=== PATIENT | male | born 1940 | race Caucasian/White ===

== ENCOUNTER 2017-07-21 00:20 | Observation (INO) | payer MEDICARE, OTHER ==
--- NOTE | 2017-07-21 00:56 | ED ---
Chest Pain HPI - General Chief Complaint: Chest Pain Stated Complaint: afib Time Seen by Provider: 07/21/17 00:47 Source: EMS Mode of arrival: EMS Limitations: altered mental status - History of Present Illness Initial Comments: This patient is 77-year-old man brought by to be evaluated for suspected seizure. The patient is not able to give any history, stating he does not recall the episode. The last and that he recalls is going to bed, and feeling like he was in his usual state of health. The patient's relates that she was lying in bed and heard him make a funny moaning or vocalizing sound, and then he started shaking. She states that the shaking lasted may be for minute. She called EMS, and he was brought here to be evaluated. The patient does remember being brought in by the ambulance. The patient's does describe what sounds like a postictal period where he could not properly respond to questions for probably 5-10 minutes. The patient did mention having some chest pain following seizure but he is declining that when I see him. MD Complaint: other Onset/Timin -: hour(s) Onset: during rest Improves With: nothing Worsens With: nothing Treatments Prior to Arrival: none - Related Data Home Medications Medication Instructions Recorded Confirmed Atorvastatin Calcium [Lipitor] 40 mg PO HS 04/11/17 07/21/17 Hydrochlorothiazide 25 mg PO DAILY 04/11/17 07/21/17 Potassium Chloride ER [K-Dur 20] 40 meq PO DAILY 04/11/17 07/21/17 amLODIPine BESYLATE [Norvasc] 10 mg PO DAILY 04/11/17 07/21/17 Metoprolol Succinate (ER) [Toprol 25 mg PO DAILY 07/21/17 07/21/17 Xl] Previous Rx's Medication Instructions Recorded Apixaban [Eliquis] 5 mg PO BID #60 tab 04/13/17 Aspirin 81 mg PO DAILY chew 04/13/17 Allergies Allergy/AdvReac Type Severity Reaction Status Date / Time No Known Allergies Allergy Verified 07/21/17 08:59 Review of Systems ROS Statement: Those systems with pertinent positive or pertinent negative responses have been documented in the HPI. ROS Other: All systems not noted in ROS Statement are negative. Constitutional: Denies: fever, chills, weakness Eyes: Denies: vision change Respiratory: Denies: cough, dyspnea Cardiovascular: Reports: as per HPI, chest pain. Denies: orthopnea, edema Gastrointestinal: Denies: abdominal pain, vomiting, diarrhea Genitourinary: Denies: dysuria, hematuria Musculoskeletal: Denies: back pain Skin: Denies: rash Neurological: Denies: headache, weakness, numbness EKG Findings - EKG Results: EKG: interpreted by ERMD, normal ST/T EKG shows: atrial fibrillation (Rate approximately 84 bpm) - Blocks, [place], Hypertrophy, ST Abn: AV and intraventricular conduction: left anterior fascicular block Past Medical History Past Medical History: No Reported History, COPD, Hyperlipidemia, Hypertension, Seizure Disorder Additional Past Medical History / Comment(s): dehydration, atrial fibrillation History of Any Multi-Drug Resistant Organisms: None Reported Past Surgical History: Heart Catheterization, Hernia Repair Additional Past Surgical History / Comment(s): cateracts Past Psychological History: No Psychological Hx Reported Smoking Status: Former smoker Past Alcohol Use History: None Reported Past Drug Use History: None Reported - Past Family History Father Additional Family Medical History / Comment(s): smoker, and had heart attack Mother Family Medical History: No Reported History General Exam Limitations: altered mental status General appearance: alert, in no apparent distress Head exam: Present: atraumatic, normocephalic Eye exam: Present: normal appearance, PERRL, EOMI. Absent: scleral icterus, conjunctival injection ENT exam: Present: normal oropharynx Neck exam: Present: normal inspection, full ROM Respiratory exam: Present: normal lung sounds bilaterally. Absent: respiratory distress, wheezes, rales, rhonchi, stridor Cardiovascular Exam: Present: regular rate, normal rhythm, normal heart sounds. Absent: systolic murmur, diastolic murmur, rubs, gallop GI/Abdominal exam: Present: soft. Absent: distended, tenderness, guarding, rebound, rigid Extremities exam: Present: normal inspection, normal capillary refill. Absent: pedal edema, calf tenderness Back exam: Present: normal inspection. Absent: CVA tenderness (R), CVA tenderness (L) Neurological exam: Present: alert, oriented X3, CN II-XII intact. Absent: motor sensory deficit Skin exam: Present: warm, dry, intact, normal color. Absent: rash Course Vital Signs 07/21/17 07/21/17 07/21/17 00:27 03:02 03:21 Temperature 99.1 F 97.8 F Pulse Rate 93 78 Pulse Rate [ 72 Left Pulse Oximetery] Pulse Rate [ 72 Right Pulse Oximetery] Respiratory 20 18 18 Rate Blood Pressure 133/67 139/76 Blood Pressure 143/79 [Left Arm] O2 Sat by Pulse 95 97 97 Oximetry Chest Pain MDM - MDM Patient 77-year-old man with what sounds like a generalized tonic-clonic seizure. His neurologic exam is normal here he is back at his baseline. They do give a history that he had one of these episodes a number of months ago, and he had a workup which was unremarkable and the patient is not taking any anti- convulsants. Case discussed with admitting physician and will be admitted to have neurology consultation, and probably EEG as well. Disposition Clinical Impression: Seizure Disposition: ADMITTED IP TO THIS [facility] Condition: Good
[2017-07-21 01:18] LABS: Basophils # (A) 0.1 k/uL (0-0.2); Basophils % (A) 1 %; Eosinophils # (A) 0.5 k/uL (0-0.7); Eosinophils % (A) 4 %; HCT 46.6 % (39.0-53.0); HGB 16.8 gm/dL (13.0-17.5); Lymphocytes # (A) 3.2 k/uL (1.0-4.8); Lymphocytes % (A) 26 %; MCH 31.3 pg (25.0-35.0); Mean Platelet Volume 7.4; Monocytes # (A) 0.7 k/uL (0-1.0); Monocytes % (A) 6 %; Neutrophils # (A) 7.3 k/uL (1.3-7.7); Neutrophils % (A) 60 %; Platelet Count 257 k/uL (150-450); RBC 5.36 m/uL (4.30-5.90); RDW 13.1 % (11.5-15.5); WBC 12.1 k/uL (3.8-10.6)
[2017-07-21 01:27] LABS: ALT 31 U/L (21-72); AST 28 U/L (17-59); Albumin 4.2 g/dL (3.5-5.0); Alcohol <10 mg/dL; Alkaline Phosphatase 103 U/L (38-126); Anion Gap 14 mmol/L; Blood Urea Nitrogen 17 mg/dL (9-20); Calcium 9.6 mg/dL (8.4-10.2); Carbon Dioxide 23 mmol/L (22-30); Chloride 102 mmol/L (98-107); Glucose 163 mg/dL (74-99); Magnesium 2.1 mg/dL (1.6-2.3); Potassium 3.4 mmol/L (3.5-5.1); Sodium 139 mmol/L (137-145); Total Protein 7.2 g/dL (6.3-8.2)
--- NOTE | 2017-07-21 01:30 | CT ---
EXAMINATION TYPE: CT brain wo con DATE OF EXAM: 07/21/2017 COMPARISON: 04/11/2017 HISTORY: seizure CT DLP: 1144.70 mGycm Automated exposure control for dose reduction was used. FINDINGS: There is some cerebral cortical atrophy. There is mild hypodensity in the periventricular white matte r. There is no mass effect nor midline shift. There is no sign of intracranial hemorrhage. The calvar ium appears intact. IMPRESSION: THERE IS MILD ATROPHY AND CHRONIC SMALL VESSEL ISCHEMIA. NO ACUTE INTRACRANIAL ABNORMALITY. NO SIGNIF ICANT CHANGE. MILD ETHMOID SINUSITIS NOTED.
[2017-07-21 02:15] LABS: Appearance,Urine Clear (Clear); Bacteria,Urine Rare /hpf; Bilirubin,Urine Negative (Negative); Blood,Urine Negative (Negative); Color,Urine Yellow; Glucose,Urine (UA) Negative (Negative); Hyaline Casts,Urine 8 /lpf (0-2); Ketones,Urine Negative (Negative); Leukocyte Esterase,Urine Moderate (Negative); Mucus,Urine Rare /hpf; Nitrite,Urine Negative (Negative); Protein,Urine 1+ (Negative); RBC,Urine 1 /hpf (0-5); Squamous Epithelial Cell,Urine 2 /hpf (0-4); Urobilinogen,Urine <2.0 mg/dL (<2.0); WBC,Urine 9 /hpf (0-5)
[2017-07-21] MEDS ORDERED: ACETAMINOPHEN TAB 325 MG TAB PO PRN (02:24)
[2017-07-21] MEDS ORDERED: MAG HYDROX/AL HYDROX/SIMETH 30 ML CUP PO PRN (02:24)
[2017-07-21] MEDS ORDERED: NALOXONE 0.4 MG/ML 1 ML VIAL IV PRN (02:24)
[2017-07-21] MEDS ORDERED: LORazepam 2 MG/ML INJ IV PRN (02:29)
[2017-07-21] MEDS: SODIUM CHLORIDE 0.9% 1,000 ML IV SCH ×2 (03:25→17:03)
[2017-07-21 03:53] VITALS: BMI 25.2
[2017-07-21] MEDS: ASPIRIN 81 MG PO SCH (09:39)
[2017-07-21] MEDS: amLODIPine 10 MG TAB PO SCH (09:39)
[2017-07-21] MEDS: ATENOLOL 25 MG TAB PO SCH ×2 (09:39→20:53)
[2017-07-21] MEDS: APIXABAN 5 MG TAB PO SCH ×2 (09:39→20:54)
[2017-07-21] MEDS: HYDROCHLOROTHIAZIDE 25 MG TAB PO SCH (09:40)
[2017-07-21] MEDS: FAMOTIDINE 20 MG TAB PO SCH ×2 (09:40→20:54)
[2017-07-21] MEDS: POTASSIUM CHLORIDE ER 20 MEQ TAB.ER PO SCH (09:40)
--- NOTE | 2017-07-21 17:13 | EEG ---
ELECTROENCEPHALOGRAM REPORT DATE OF EE07/21/2017. REFERRING PHYSICIAN: Dr. Houston. CONSULTING AND INTERPRETING PHYSICIAN: Andrew Couch MD ELECTROENCEPHALOGRAPHIC EXAMINATION REPORT: INDICATION FOR EXAMINATION: This patient is a 77-year-old male being evaluated for altered mental status. The patient has history of seizure disorder in the past. AGE: [age]. EEG FINDINGS: A routine 21 channel awake digital EEG recording was accomplished utilizing the 10-20 international system with bipolar and referential montages. The background activity in the most alert resting state consists of a low to medium amplitude, poorly developed and poorly sustained 6 Hz activity over the posterior head regions. This posterior rhythm attenuates to eye opening. There is a small amount of low amplitude 18-20 Hz beta activity seen maximally over the anterior head regions. Muscle and movement artifact was observed on a few occasions during the tracing. Hyperventilation was not performed. Photic stimulation at flash frequencies of 2-30 Hz produced a minimal occipital driving response. No epileptiform discharges were seen. IMPRESSION: This EEG is moderately abnormal in a diffuse fashion due to slowing of the EEG background. The EEG failed to reveal any focal, lateralized, or epileptiform abnormalities. Clinical correlation is recommended. MMODL / IJN: [id number] /
--- NOTE | 2017-07-21 18:23 | P.CNNES ---
History of Present Illness Consult date: 07/21/17 Reason for Consult: This patient is admitted for possible seizure. History of Present Illness: This patient is a 77-year-old right-handed white male who states he was in his usual state of health until late yesterday evening. He was at home and was in bed and stated that he suddenly developed twitching of his right arm. He was alert during this entire episode which may have lasted about a minute in duration. His was alerted to this sudden change and immediately called EMS. He was transported by EMS to the emergency room for further evaluation. He appeared to be slightly confused in the ER and he was admitted for further evaluation. He was sent for a computed tomography scan of the brain by ER physician Dr. Melton. CAT scan of the brain revealed mild atrophy and chronic small vessel ischemia. No acute intracranial abnormality was noted. There was mild ethmoid sinusitis noted. The patient's EKG revealed evidence of new onset atrial fibrillation. Would recommend further follow-up with cardiology. The patient was admitted to the hospital for further evaluation. The patient has no previous history of head injury or seizures. He does seem to be appropriate for his age today on examination. He was able to complete a routine EEG today. This EEG was reviewed and is moderately slow with no epileptiform discharges. We discussed the results of the CAT scan and EEG today with the patient. He does seem to be appropriate and is able to follow all simple commands. He denies any headache pain or weakness on exam at this time. At this time given his EEG findings he is not a candidate for anticonvulsant therapy. We will continue to follow his progress closely during this admission. Neurology is now been consulted for further evaluation and recommendations. Review of Systems Constitutional: Denies chills, Denies fever Eyes: denies blurred vision, denies pain Ears, nose, mouth and throat: Denies headache, Denies sore throat Cardiovascular: Denies chest pain, Denies shortness of breath Respiratory: Denies cough Gastrointestinal: Denies abdominal pain, Denies diarrhea, Denies nausea, Denies vomiting Musculoskeletal: Denies myalgias Integumentary: Denies pruritus, Denies rash Neurological: Reports change in mentation, Reports convulsions, Denies numbness , Denies weakness Psychiatric: Denies anxiety, Denies depression Endocrine: Denies fatigue, Denies weight change Past Medical History Past Medical History: COPD, Hyperlipidemia, Hypertension, Seizure Disorder Additional Past Medical History / Comment(s): dehydration, atrial fibrillation History of Any Multi-Drug Resistant Organisms: None Reported Past Surgical History: Heart Catheterization, Hernia Repair Additional Past Surgical History / Comment(s): cateracts Past Psychological History: No Psychological Hx Reported Smoking Status: Former smoker Past Alcohol Use History: None Reported Past Drug Use History: None Reported Additional Drug Use History / Comment(s): only smoked for a couple years in his 20's - Past Family History Father Additional Family Medical History / Comment(s): smoker, and had heart attack Mother Family Medical History: No Reported History Medications and Allergies Home Medications Medication Instructions Recorded Confirmed Type Atorvastatin Calcium [Lipitor] 40 mg PO HS 04/11/17 07/21/17 History Hydrochlorothiazide 25 mg PO DAILY 04/11/17 07/21/17 History Potassium Chloride ER [K-Dur 20] 40 meq PO DAILY 04/11/17 07/21/17 History amLODIPine BESYLATE [Norvasc] 10 mg PO DAILY 04/11/17 07/21/17 History Apixaban [Eliquis] 5 mg PO BID #60 tab 04/13/17 07/21/17 Rx Aspirin 81 mg PO DAILY chew 04/13/17 07/21/17 Rx Metoprolol Succinate (ER) [Toprol 25 mg PO DAILY 07/21/17 07/21/17 History Xl] Allergies Allergy/AdvReac Type Severity Reaction Status Date / Time No Known Allergies Allergy Verified 07/21/17 08:59 Physical Examination - Vital Signs Vital Signs: Vital Signs Temp Pulse Pulse Pulse Resp BP BP 07/21/17 15:00 97.8 F 65 16 113/67 07/21/17 07:00 97.5 F L 82 16 154/73 07/21/17 03:21 78 18 139/76 07/21/17 03:02 97.8 F 72 72 18 143/79 07/21/17 00:27 99.1 F 93 20 133/67 Pulse Ox 07/21/17 15:00 96 07/21/17 07:00 98 07/21/17 03:21 97 07/21/17 03:02 97 07/21/17 00:27 95 Intake and Output 07/21/17 07/21/17 07/21/17 06:59 14:59 22:59 Intake Total 275 240 Balance 275 240 Intake: Intake, IV Titration 275 Amount Sodium Chloride 0.9% 1, 275 000 ml @ 75 mls/hr IV . [id number] [facility] Rx#:[id number] Oral 240 Other: Voiding Method Toilet # Voids 1 2 Weight 77.56 kg - Constitutional General appearance: average body habitus, cooperative - EENT EENT: PERRL, mucous membranes moist - Respiratory Respiratory: lungs clear, normal breath sounds - Cardiovascular Cardiovascular: regular rate, normal S1, normal S2 Extremities: no peripheral edema bilaterally - Gastrointestinal Gastrointestinal: normoactive bowel sounds - Integumentary Integumentary: normal - Neurologic Cranial nerve examination: PERRL, EOMI, VFF, V1/V2/V3 grossly intact, face symmetric, tongue midline, intact gag reflex, intact corneal reflex, normal palatal elevation Speech examination: intact Sensorimotor examination: intact Motor examination - right side: 4/5: biceps, triceps, wrist flexion, wrist extension, registry nurse, hip flexors, knee extensors, dorsiflexion, toe extension (EHL) , plantarflexion Motor examination - left side: 4/5: biceps, triceps, wrist flexion, wrist extension, registry nurse, hip flexors, knee extensors, dorsiflexion, toe extension (EHL) , plantarflexion Detailed sensory examination: intact Reflex and gait examination: intact Reflexes: 1+: ankle, bicep, knee, tricep - Musculoskeletal Musculoskeletal: no pain - Psychiatric Psychiatric: mood/affect appropriate, cooperative Results - Laboratory Findings CBC and BMP: 07/21/17 00:30 07/21/17 00:30 Abnormal Lab Findings: Abnormal Labs 07/21/17 07/21/17 07/21/17 00:30 00:30 01:50 WBC 12.1 H Potassium 3.4 L Glucose 163 H Urine Protein 1+ H Ur Leukocyte Esterase Moderate H Urine WBC 9 H Urine WBC Clumps Rare H Urine Bacteria Rare H Hyaline Casts 8 H Urine Mucus Rare H Assessment and Plan (1) Acute encephalopathy Current Visit: Yes Status: Acute Code(s): G93.40 - ENCEPHALOPATHY, UNSPECIFIED SNOMED Code(s): 52305782 (2) Hypertension Current Visit: Yes Status: Acute Code(s): I10 - ESSENTIAL (PRIMARY) HYPERTENSION SNOMED Code(s): 72700414 (3) Seizure Current Visit: Yes Status: Acute Code(s): R56.9 - UNSPECIFIED CONVULSIONS SNOMED Code(s): 06785461 (4) New onset atrial fibrillation Current Visit: No Status: Acute Code(s): I48.91 - UNSPECIFIED ATRIAL FIBRILLATION SNOMED Code(s): 30680518 Plan: This patient is a 77-year-old male who was admitted to hospital after having sudden onset of twitching involving his right upper extremity. According to the patient he awoke late in the night and was noted to have twitching of his right arm. This lasted for about 1 minute in duration and quickly resolved. He has had no further recurrence of the symptoms. His is concerned and called EMS and he was brought into the emergency room for further evaluation. The patient was seen in the ER by Dr. Melton. He underwent a CAT scan of the brain which failed to reveal any acute findings. He was admitted to hospital for further evaluation. The patient was able to complete a routine EEG today which was reviewed. EEG revealed moderate slowing with no evidence of any epileptiform discharges. We did discuss all of his test results today with the patient in detail. We will continue to monitor the patient for any further recurrence of symptoms. We will continue close neurological follow-up with the patient during this admission. His overall prognosis at this time remains guarded. Time with Patient: Greater than 30
[2017-07-21] MEDS: ATORVASTATIN 40 MG TAB PO SCH (20:54)
--- NOTE | 2017-07-21 23:19 | P.HPIM ---
History of Present Illness H&P Date: 07/21/17 Chief Complaint: Seizures Patient is a 77-year-old male with a known history of hypertension, hyperlipidemia and chronic atrial fibrillation on anticoagulation was brought to the hospital with complaints of seizures. According to his patient developed shaking movements of hands which last about a minute and patient was unresponsive for about few minutes. No bowel or bladder incontinence. As per his patient had similar episode previously. EMS was called and patient was brought to the hospital. Apparently patient was able to walk to the EMS vehicle. CT head revealed chronic small was an ischemic changes and atrophy. No acute changes noted. Mild ethmoid sinusitis EKG showed atrial fibrillation EEG was done and awaiting report at this time Patient denied any chest pain or shortness of breath. No nausea vomiting or abdominal pain. No recent illnesses. No recent flulike symptoms. No history of previous stroke or head injury. Review of Systems Constitutional: Patient denies any fever or chills . No generalized weakness or weight loss. Abdomen: Patient denied nausea vomiting and diarrhea and abdominal pain. Cardiovascular: Patient denies any chest pain or short of breath no palpitations. Respiratory: patient denied any cough is from production. No shortness of breath Neurologic: Patient denied any numbness or tingling headache. Musculoskeletal: Patient denies any complaints of joint swelling or deformity. Skin: Negative Psychiatric: Negative Endocrine: No heat or cold intolerance. No recent weight gain. Genitourinary: No dysuria or hematuria. All other 14 point ROS negative except the above Past Medical History Past Medical History: COPD, Hyperlipidemia, Hypertension, Seizure Disorder Additional Past Medical History / Comment(s): dehydration, atrial fibrillation History of Any Multi-Drug Resistant Organisms: None Reported Past Surgical History: Heart Catheterization, Hernia Repair Additional Past Surgical History / Comment(s): cateracts Past Psychological History: No Psychological Hx Reported Smoking Status: Former smoker Past Alcohol Use History: None Reported Past Drug Use History: None Reported Additional Drug Use History / Comment(s): only smoked for a couple years in his 20's - Past Family History Father Additional Family Medical History / Comment(s): smoker, and had heart attack Mother Family Medical History: No Reported History Medications and Allergies Home Medications Medication Instructions Recorded Confirmed Type Atorvastatin Calcium [Lipitor] 40 mg PO HS 04/11/17 07/21/17 History Hydrochlorothiazide 25 mg PO DAILY 04/11/17 07/21/17 History Potassium Chloride ER [K-Dur 20] 40 meq PO DAILY 04/11/17 07/21/17 History amLODIPine BESYLATE [Norvasc] 10 mg PO DAILY 04/11/17 07/21/17 History Apixaban [Eliquis] 5 mg PO BID #60 tab 04/13/17 07/21/17 Rx Aspirin 81 mg PO DAILY chew 04/13/17 07/21/17 Rx Metoprolol Succinate (ER) [Toprol 25 mg PO DAILY 07/21/17 07/21/17 History Xl] Allergies Allergy/AdvReac Type Severity Reaction Status Date / Time No Known Allergies Allergy Verified 07/21/17 08:59 Physical Exam Vitals: Vital Signs Temp Pulse Pulse Pulse Resp BP BP 07/21/17 07:00 97.5 F L 82 16 154/73 07/21/17 03:21 78 18 139/76 07/21/17 03:02 97.8 F 72 72 18 143/79 07/21/17 00:27 99.1 F 93 20 133/67 Pulse Ox 07/21/17 07:00 98 07/21/17 03:21 97 07/21/17 03:02 97 07/21/17 00:27 95 Intake and Output 07/20/17 07/21/17 07/21/17 22:59 06:59 14:59 Intake Total 275 240 Balance 275 240 Intake: Intake, IV Titration 275 Amount Sodium Chloride 0.9% 1, 275 000 ml @ 75 mls/hr IV . [id number] [facility] Rx#:[id number] Oral 240 Other: Voiding Method Toilet # Voids 1 Weight 77.56 kg PHYSICAL EXAMINATION: Patient is lying in the bed comfortably, no acute distress, awake alert and oriented.. HEENT: Normocephalic. Neck is supple. Pupils reactive. Nostrils clear. Oral cavity is moist. Ears reveal no drainage. Neck reveals no JVD, carotid bruits, or thyromegaly. CHEST EXAMINATION: Trachea is central. Symmetrical expansion. Lung nelson clear to auscultation and percussion. CARDIAC: Normal S1, S2 with no gallops. No murmurs ABDOMEN: Soft. Bowel sounds normal. No organomegaly. No abdominal bruits. Extremities: reveal no edema. No clubbing or cyanosis Neurologically awake, alert, oriented x3 with well-coordinated movements. No focal deficits noted Skin: No rash or skin lesions. Psychiatric: Coperative. Nonsuicidal Musculoskeletal: No joint swelling or deformity. Normal range of motion. Results CBC & Chem 7: 07/21/17 00:30 07/21/17 00:30 Labs: Abnormal Lab Results - Last 24 Hours (Table) 07/21/17 07/21/17 07/21/17 Range/Units 00:30 00:30 01:50 WBC 12.1 H (3.8-10.6) k/uL Potassium 3.4 L (3.5-5.1) mmol/L Glucose 163 H (74-99) mg/dL Urine Protein 1+ H (Negative) Ur Leukocyte Esterase Moderate H (Negative) Urine WBC 9 H (0-5) /hpf Urine WBC Clumps Rare H (None) /hpf Urine Bacteria Rare H (None) /hpf Hyaline Casts 8 H (0-2) /lpf Urine Mucus Rare H (None) /hpf Thrombosis Risk Factor Assmnt - Choose All That Apply Any of the Below Risk Factors Present?: No Other Risk Factors: Yes Each Risk Factor Represents 2 Points: Age 61-74 years Other congenital or acquired thrombophilia - If yes, enter type in comment: No Thrombosis Risk Factor Assessment Total Risk Factor Score: 2 Thrombosis Risk Factor Assessment Level: Low Risk Assessment and Plan Assessment: Bilateral shaky movements of hands. Rule out seizures Chronic atrial fibrillation on anticoagulation Hypertension Hyperlipidemia COPD stable Plan: Patient will be continued to monitor for any seizure activity . EEG was done. Neurology has been consulted. Further recommendations based on the clinical course. Continue with home medications. Time with Patient: Greater than 30
[2017-07-22] MEDS: SODIUM CHLORIDE 0.9% 1,000 ML IV SCH ×2 (05:06→18:55)
[2017-07-22 07:25] LABS: Basophils # (A) 0.1 k/uL (0-0.2); Basophils % (A) 1 %; Eosinophils # (A) 0.4 k/uL (0-0.7); Eosinophils % (A) 4 %; HCT 43.1 % (39.0-53.0); HGB 14.8 gm/dL (13.0-17.5); Lymphocytes # (A) 2.6 k/uL (1.0-4.8); Lymphocytes % (A) 25 %; MCH 30.5 pg (25.0-35.0); MCHC 34.2 g/dL (31.0-37.0); Mean Platelet Volume 6.7; Monocytes # (A) 0.7 k/uL (0-1.0); Monocytes % (A) 7 %; Neutrophils # (A) 6.3 k/uL (1.3-7.7); Neutrophils % (A) 61 %; Platelet Count 240 k/uL (150-450); RBC 4.84 m/uL (4.30-5.90); RDW 13.4 % (11.5-15.5); WBC 10.3 k/uL (3.8-10.6)
[2017-07-22 07:31] LABS: Anion Gap 10 mmol/L; Blood Urea Nitrogen 14 mg/dL (9-20); Carbon Dioxide 28 mmol/L (22-30); Chloride 106 mmol/L (98-107); Glucose 105 mg/dL (74-99); Potassium 3.7 mmol/L (3.5-5.1); Sodium 144 mmol/L (137-145)
[2017-07-22] MEDS: FAMOTIDINE 20 MG TAB PO SCH ×2 (08:13→22:22)
[2017-07-22] MEDS: amLODIPine 10 MG TAB PO SCH (08:13)
[2017-07-22] MEDS: POTASSIUM CHLORIDE ER 20 MEQ TAB.ER PO SCH (08:14)
[2017-07-22] MEDS: ATENOLOL 25 MG TAB PO SCH ×2 (08:14→22:22)
[2017-07-22] MEDS: HYDROCHLOROTHIAZIDE 25 MG TAB PO SCH (08:14)
[2017-07-22] MEDS: ASPIRIN 81 MG PO SCH (08:14)
[2017-07-22] MEDS: APIXABAN 5 MG TAB PO SCH ×2 (08:14→22:22)
[2017-07-22] MEDS: ATORVASTATIN 40 MG TAB PO SCH (22:22)
--- NOTE | 2017-07-22 22:30 | P.PN ---
Subjective Progress Note Date: 07/22/17 This patient is a 77-year-old male who is being evaluated for possible seizure event. Patient was brought into the hospital and underwent a computed tomography scan of the brain which revealed chronic small vessel ischemic changes and atrophy. He underwent a routine EEG which was moderately slow consistent with moderate encephalopathy. Patient was noted today to be having signs of increased confusion in the evening hours. His EEG failed to reveal any evidence of epileptiform discharges. The patient is showing signs of mild sundowner syndrome. As noted his CAT scan of the brain did reveal cortical atrophy and EEG is moderately slow. At this point we will continue close monitoring for the patient. He does not require anticonvulsant therapy at this time. His overall prognosis remains guarded. We will continue close neurological follow-up for the patient during this admission. Objective - Vital Signs Vital signs: Vital Signs Temp 98.4 F 07/22/17 14:15 Pulse 68 07/22/17 14:15 Resp 18 07/22/17 14:15 BP 125/72 07/22/17 14:15 Pulse Ox 97 07/22/17 14:15 Intake & Output 07/22/17 07/22/17 07/23/17 06:59 18:59 06:59 Intake Total 717 Balance 717 Intake: Oral 717 Other: Voiding Method Toilet # Voids 2 2 - Exam Physical examination: PHYSICAL EXAMINATION: Patient is resting comfortably in bed. VITAL SIGNS: Blood pressure is [125/72]. Heart rate is [68]. Respiration is [18] . Temperature is [98.4]. HEENT: Head is atraumatic, neck is supple, there were no carotid bruits. CHEST: Lungs are clear to auscultation and percussion. CARDIAC: S1, S2 normal rate and rhythm. There is no murmur. ABDOMEN: Soft and nontender. Bowel sounds are present. EXTREMITIES: There is no pedal edema. Peripheral pulses are present. Neurological examination: Patient's neurological examination is unchanged from yesterday. - Labs CBC & Chem 7: 07/22/17 07:01 07/22/17 07:01 Labs: Abnormal Lab Results - Last 24 Hours (Table) 07/22/17 Range/Units 07:01 Glucose 105 H (74-99) mg/dL Assessment and Plan (1) Acute encephalopathy Current Visit: Yes Status: Acute Code(s): G93.40 - ENCEPHALOPATHY, UNSPECIFIED SNOMED Code(s): 76095178 (2) Hypertension Current Visit: Yes Status: Acute Code(s): I10 - ESSENTIAL (PRIMARY) HYPERTENSION SNOMED Code(s): 68635972 (3) Seizure Current Visit: Yes Status: Acute Code(s): R56.9 - UNSPECIFIED CONVULSIONS SNOMED Code(s): 30462270 (4) New onset atrial fibrillation Current Visit: No Status: Acute Code(s): I48.91 - UNSPECIFIED ATRIAL FIBRILLATION SNOMED Code(s): 25521534 Plan: This patient is a 77-year-old male being evaluated for possibility of seizure disorder. Patient underwent a computed tomography scan of the brain on admission the results which are noted above. He completed a routine EEG yesterday which revealed moderate slowing with no epileptiform discharges. He is showing signs of mild encephalopathy this evening. We will continue close neurological follow-up for the patient. His overall prognosis at this time remains guarded.
--- NOTE | 2017-07-22 23:38 | PN ---
PROGRESS NOTE DATE OF SERVICE: 07/22/2017 PRESENTING COMPLAINT: Possible seizure. INTERVAL HISTORY: This patient presented with episodes of shaking of the hand and loss of consciousness. According to the at the bedside, this is not the first time he has had this episode. He had it a few weeks ago. The patient's EKG did not show any obvious seizure activity, but on clinical grounds, the patient did seem to have a focal seizure resulting into generalized seizure. Neurology did see the patient with EEG. At this point, it was decided to hold off any antiepileptic drugs. The patient was feeling well when I saw this patient this afternoon. Tolerating his diet. No further episodes. at the bedside. REVIEW OF SYSTEMS: Done for constitutional, cardiovascular, GI, pulmonary and findings as above. CURRENT MEDICATIONS: Reviewed that include Eliquis. PHYSICAL EXAMINATION: Temperature 98.4, pulse 58, respiratory 18, blood pressure 125/72, pulse ox 97% room air. GENERAL: Sitting up in bed, comfortable. EYES: Pupils equal. Conjunctivae are normal. HEENT: External appearance of nose and ears normal. Oral cavity normal. NECK: JVD not raised. Mass not palpable. RESPIRATORY: Effort normal. LUNGS: Fair entry. CARDIOVASCULAR: 1st and 2nd sounds normal. No edema. ABDOMEN: Soft, nontender. Liver and spleen not palpable. PSYCHIATRY: Alert and oriented x3. Mood and affect normal. INVESTIGATIONS: White count 10.3, hemoglobin 14.8, potassium 3.7. ASSESSMENT: 1. Possible seizure activity with more than one episode. 2. Paroxysmal atrial fibrillation for which patient is chronically on Eliquis. 3. Essential hypertension. 4. Hyperlipidemia. PLAN: Care was discussed at length with the patient and . We will see how the patient does today and await any further input from Neurology. Seizure precautions are to remain in place. MMODL / IJN: [id number] /
[2017-07-23] MEDS: SODIUM CHLORIDE 0.9% 1,000 ML IV SCH (08:48)
[2017-07-23] MEDS: FAMOTIDINE 20 MG TAB PO SCH (08:49)
[2017-07-23] MEDS: ASPIRIN 81 MG PO SCH (08:49)
[2017-07-23] MEDS: amLODIPine 10 MG TAB PO SCH (08:49)
[2017-07-23] MEDS: HYDROCHLOROTHIAZIDE 25 MG TAB PO SCH (08:50)
[2017-07-23] MEDS: APIXABAN 5 MG TAB PO SCH (08:50)
[2017-07-23] MEDS: ATENOLOL 25 MG TAB PO SCH (08:50)
[2017-07-23] MEDS: POTASSIUM CHLORIDE ER 20 MEQ TAB.ER PO SCH (08:50)
--- NOTE | 2017-07-23 14:19 | P.PN ---
Subjective Progress Note Date: 07/23/17 This patient is a 77-year-old male who is being evaluated for possible seizure event. Patient was brought into the hospital and underwent a computed tomography scan of the brain which revealed chronic small vessel ischemic changes and atrophy. He underwent a routine EEG which was moderately slow consistent with moderate encephalopathy. Patient was noted today to be having signs of increased confusion in the evening hours. His EEG failed to reveal any evidence of epileptiform discharges. The patient is showing signs of mild sundowner syndrome. As noted his CAT scan of the brain did reveal cortical atrophy and EEG is moderately slow. At this point we will continue close monitoring for the patient. He does not require anticonvulsant therapy at this time. His overall prognosis remains guarded. The patient's was at bedside today and was able to provide more history for this patient. Apparently he has had 3 episodes that have always occurred at night in which he has some shaking of his right arm and becomes somewhat obtunded. His has a hard time awakening him during these events. All 3 events have occurred at night while he is sleeping. Still unclear if this may be related to a sleep disorder. He may benefit from a sleep study. We did review the results of his CAT scan of the brain and EEG results with his in detail. We have recommended that he follow up in the outpatient neurology clinic in 2-3 weeks at which time we may consider repeat EEG. At this time he does not appear to have underlying seizure disorder based on his most recent EEG that was done here in the hospital. Patient's states she will try to get him in for follow-up in the neurology clinic. We will continue close neurological follow- up for the patient during this admission. Objective - Vital Signs Vital signs: Vital Signs Temp 97.9 F 07/23/17 07:00 Pulse 66 07/23/17 07:00 Resp 16 07/23/17 07:00 BP 127/78 07/23/17 07:00 Pulse Ox 96 07/23/17 07:00 Intake & Output 07/22/17 07/23/17 07/23/17 18:59 06:59 18:59 Intake Total 717 480 180 Balance 717 480 180 Weight 77.56 kg Intake: Oral 717 480 180 Other: Voiding Method Toilet Toilet # Voids 2 1 - Exam Physical examination: PHYSICAL EXAMINATION: Patient is resting comfortably in bed. VITAL SIGNS: Blood pressure is [122/78]. Heart rate is [67]. Respiration is [16] . Temperature is [97.8]. HEENT: Head is atraumatic, neck is supple, there were no carotid bruits. CHEST: Lungs are clear to auscultation and percussion. CARDIAC: S1, S2 normal rate and rhythm. There is no murmur. ABDOMEN: Soft and nontender. Bowel sounds are present. EXTREMITIES: There is no pedal edema. Peripheral pulses are present. Neurological examination: Patient's neurological examination is unchanged from yesterday. - Labs CBC & Chem 7: 07/22/17 07:01 07/22/17 07:01 Assessment and Plan (1) Acute encephalopathy Current Visit: Yes Status: Acute Code(s): G93.40 - ENCEPHALOPATHY, UNSPECIFIED SNOMED Code(s): 96489409 (2) Hypertension Current Visit: Yes Status: Acute Code(s): I10 - ESSENTIAL (PRIMARY) HYPERTENSION SNOMED Code(s): 32506297 (3) Seizure Current Visit: Yes Status: Acute Code(s): R56.9 - UNSPECIFIED CONVULSIONS SNOMED Code(s): 16370490 (4) New onset atrial fibrillation Current Visit: No Status: Acute Code(s): I48.91 - UNSPECIFIED ATRIAL FIBRILLATION SNOMED Code(s): 45920979 Plan: This patient is a 77-year-old male who was initially admitted to Hospital with questionable seizure activity at home. History was obtained today from his who is at bedside. Apparently he has had 3 episodes since March of last year. All 3 episodes are very typical and occur only at night. He usually is noted to have some movement of his right arm and becomes unresponsive and quickly comes out of these spells after a minute or two. He was admitted to the hospital for this admission and underwent a routine EEG which failed to reveal any evidence of active seizure focus. There was diffuse slowing. CAT scan of the brain also revealed cortical atrophy. Clinical history suggests possibility of a sleep disorder. We have reviewed the EEG results and CAT scan results today with the patient and his at bedside. At this time we will hold off on any specific anticonvulsant medication and will plan to reevaluate the patient soon after discharge in 2-3 weeks. Patient is advised he should not be driving.. To 6 months due to his recent episodes. We will continue close neurological follow-up for the patient during this admission. Case was discussed today with Dr. Mast who is planning to discharge the patient later today to home. His overall prognosis at this time remains guarded.
[2017-07-23 15:41] VITALS: BP 119/72; PULSE 64; RESP 21; TEMP 97.5
--- NOTE | 2017-07-24 18:40 | DS ---
DISCHARGE SUMMARY DATE OF ADMISSION: July 21, 2017. DATE OF DISCHARGE: July 23, 2017. FINAL DIAGNOSES: 1. Possible metabolic encephalopathy per Neurology. 2. Paroxysmal atrial fibrillation for which patient is chronically on Eliquis. 3. Essential hypertension. 4. Hyperlipidemia. HOSPITAL COURSE: This patient presents with shaking of the right arm. Has some loss of consciousness. The patient had this episode before. The patient did have an EEG that did not show any seizure activity. The patient is seen by Dr. Couch with who I discussed. He thought this patient probably has had encephalopathy. At this point, no antiseizure medications to be given. I did discuss this with the . On exam, lungs are clear. Cardiovascular 1st and 2nd sounds normal. CT scan of the brain shows some atrophic changes. DISCHARGE MEDICATIONS: 1. Lipitor 40 mg q.h.s. 2. Hydrochlorothiazide 25 mg a day. 3. Potassium 40 mEq a day. 4. Norvasc 10 mg a day. 5. Eliquis 5 mg b.i.d. 6. Aspirin 81 mg a day. 7. Tenormin 25 mg b.i.d. Follow up with Dr. Franklin on July 29, 2017, follow up with Dr. Couch in 2 weeks. The patient advised against driving until further notice. Copy to Dr Franklin. MMJOSELUISL / EZEKIELN: [id number] /
== END 2017-07-23 15:25 | disposition home or self-care (01) ==
LOC: EC 00:20 → INTOOBSV 02:30 → 3SUR 02:30
PROVIDERS: ADMIT Hospitalist; ATTEND Hospitalist
DX: R25.3 Fasciculation (principal); R07.9 Chest pain, unspecified; R41.0 Disorientation, unspecified; I48.0 Paroxysmal atrial fibrillation; I48.2 Chronic atrial fibrillation; E78.5 Hyperlipidemia, unspecified; I10 Essential (primary) hypertension; J44.9 Chronic obstructive pulmonary disease, unspecified; G40.909 Epilepsy, unspecified, not intractable, without status epilepticus; Z87.891 Personal history of nicotine dependence; Z79.899 Other long term (current) drug therapy; Z79.01 Long term (current) use of anticoagulants; Z79.82 Long term (current) use of aspirin; Z82.49 Family history of ischemic heart disease and other diseases of the circulatory system
CPT/HCPCS: 36415; 70450; 80048; 80053; 80320; 81001; 83735; 84484; 85025; 93005; 95819; 96360; 96361; 99285

== ENCOUNTER 2017-08-10 23:28 | Inpatient (IN) | payer MEDICARE, OTHER ==
[2017-08-10] MEDS ORDERED: PHENYTOIN SODIUM INJ 1,000 MG in SODIUM CHLORIDE 0.9% 100 ML IVPB STA (23:42)
--- NOTE | 2017-08-10 23:45 | ED ---
General Adult HPI - General Chief complaint: Seizure Stated complaint: SEIZURE Time Seen by Provider: 08/10/17 23:32 Source: patient, EMS, RN notes reviewed Mode of arrival: EMS Limitations: altered mental status, physical limitation - History of Present Illness Initial comments: Patient is a pleasant 77-year-old male presenting to the emergency department following suspected seizure. provides history. Patient does not recall the episode. Patient normally is oriented to time and year. states shortly after they went to bed patient had generalized seizure activity that lasted around 10 seconds or so. Following this patient was unresponsive for approximately 10 minutes. Following this patient was alert however confused. She states at this time patient is close to normal. Patient has had 3 episodes now over the past several months. Patient denies any injury. - Related Data Home Medications Medication Instructions Recorded Confirmed Atorvastatin Calcium [Lipitor] 40 mg PO HS 04/11/17 08/10/17 Hydrochlorothiazide 25 mg PO DAILY 04/11/17 08/10/17 Potassium Chloride ER [K-Dur 20] 40 meq PO DAILY 04/11/17 08/10/17 amLODIPine BESYLATE [Norvasc] 10 mg PO DAILY 04/11/17 08/10/17 Previous Rx's Medication Instructions Recorded Apixaban [Eliquis] 5 mg PO BID #60 tab 04/13/17 Aspirin 81 mg PO DAILY chew 04/13/17 Atenolol [Tenormin] 25 mg PO BID #60 tab 07/23/17 Allergies Allergy/AdvReac Type Severity Reaction Status Date / Time No Known Allergies Allergy Verified 08/10/17 23:35 Review of Systems ROS Statement: Those systems with pertinent positive or pertinent negative responses have been documented in the HPI. ROS Other: All systems not noted in ROS Statement are negative. Constitutional: Denies: fever Eyes: Denies: eye pain ENT: Denies: ear pain Respiratory: Denies: cough Cardiovascular: Denies: chest pain Endocrine: Denies: fatigue Gastrointestinal: Denies: abdominal pain Genitourinary: Denies: dysuria Musculoskeletal: Denies: back pain Skin: Denies: rash Neurological: Denies: headache, weakness, confusion Past Medical History Past Medical History: No Reported History, Atrial Fibrillation, COPD, Hyperlipidemia, Hypertension, Seizure Disorder, Sleep Apnea/CPAP/BIPAP Additional Past Medical History / Comment(s): dehydration, atrial fibrillation, History of Any Multi-Drug Resistant Organisms: None Reported Past Surgical History: Heart Catheterization, Hernia Repair Additional Past Surgical History / Comment(s): cataracts Past Psychological History: No Psychological Hx Reported Smoking Status: Former smoker Past Alcohol Use History: None Reported Past Drug Use History: None Reported - Past Family History Father Additional Family Medical History / Comment(s): smoker, and had heart attack Mother Family Medical History: No Reported History General Exam Limitations: altered mental status, physical limitation General appearance: alert, in no apparent distress Head exam: Present: atraumatic, normocephalic Eye exam: Present: normal appearance, PERRL, EOMI. Absent: nystagmus ENT exam: Present: normal oropharynx Neck exam: Present: normal inspection. Absent: meningismus Respiratory exam: Present: normal lung sounds bilaterally Cardiovascular Exam: Present: regular rate, irregular rhythm GI/Abdominal exam: Present: soft. Absent: tenderness Extremities exam: Present: normal inspection Neurological exam: Present: alert, CN II-XII intact. Absent: motor sensory deficit Expanded Neurological exam: Present: protecting the airway Patient oriented to: Present: person, place. Absent: time (Patient unable to recall year or month. states this is abnormal) Cranial nerves: EOM's Intact: Normal, Facial Sensation: Normal Sensory exam: Upper Extremity Light Touch: Normal, Lower Extremity Pin Prick: Normal Motor strength exam: RUE: 5, LUE: 5, RLE: 5, LLE: 5 Eye Response: (4) open spontaneously Motor Response: (6) obeys commands Verbal Response: (4) confused conversation Psychiatric exam: Present: normal affect, normal mood Skin exam: Present: normal color Course Vital Signs 08/10/17 08/11/17 23:31 00:15 Temperature 98.7 F Pulse Rate 83 65 Respiratory 18 18 Rate Blood Pressure 111/69 131/78 O2 Sat by Pulse 94 L 95 Oximetry EKG Findings - EKG Comments: EKG Findings:: A. fib with a rate of 59. QRS 100. QT 416. QTC 411. Left axis. Normal QRS. No acute ST change. Medical Decision Making - Medical Decision Making Patient reevaluated and resting comfortably in bed. Patient and family updated on results and plan. Case discussed with Dr. marquez, who will admit for Dr. franklin. Neurology will be consulted. Patient will be covered with antibiotics for possible urinary tract infection. - Lab Data Result diagrams: 08/10/17 23:50 08/10/17 23:50 Lab Results 08/10/17 08/10/17 08/11/17 Range/Units 23:50 23:50 00:31 WBC 11.3 H (3.8-10.6) k/uL RBC 5.77 (4.30-5.90) m/uL Hgb 17.2 (13.0-17.5) gm/dL Hct 51.0 (39.0-53.0) % MCV 88.3 (80.0-100.0) fL MCH 29.9 (25.0-35.0) pg MCHC 33.8 (31.0-37.0) g/dL RDW 13.5 (11.5-15.5) % Plt Count 295 (150-450) k/uL Neutrophils % 52 % Lymphocytes % 34 % Monocytes % 7 % Eosinophils % 5 % Basophils % 1 % Neutrophils # 5.9 (1.3-7.7) k/uL Lymphocytes # 3.8 (1.0-4.8) k/uL Monocytes # 0.7 (0-1.0) k/uL Eosinophils # 0.5 (0-0.7) k/uL Basophils # 0.1 (0-0.2) k/uL Sodium 143 (137-145) mmol/L Potassium 3.4 L (3.5-5.1) mmol/L Chloride 103 (98-107) mmol/L Carbon Dioxide 17 L (22-30) mmol/L Anion Gap 23 mmol/L BUN 18 (9-20) mg/dL Creatinine 0.90 (0.66-1.25) mg/dL Est GFR (CKD-EPI)AfAm >90 (>60 ml/min/1.73 sqM) Est GFR (CKD-EPI)NonAf 82 (>60 ml/min/1.73 sqM) Glucose 156 H (74-99) mg/dL POC Glucose (mg/dL) (75-99) mg/dL POC Glu Shaker Screen Operator ID Calcium 10.2 (8.4-10.2) mg/dL Magnesium 2.2 (1.6-2.3) mg/dL Total Bilirubin 0.8 (0.2-1.3) mg/dL AST 32 (17-59) U/L ALT 36 (21-72) U/L Alkaline Phosphatase 102 (38-126) U/L Total Protein 8.1 (6.3-8.2) g/dL Albumin 4.8 (3.5-5.0) g/dL Urine Color Light Yellow Urine Appearance Cloudy (Clear) Urine pH 6.0 (5.0-8.0) Ur Specific Apex 1.010 (1.001-1.035) Urine Protein 1+ H (Negative) Urine Glucose (UA) Negative (Negative) Urine Ketones Negative (Negative) Urine Blood Negative (Negative) Urine Nitrite Negative (Negative) Urine Bilirubin Negative (Negative) Urine Urobilinogen <2.0 (<2.0) mg/dL Ur Leukocyte Esterase Large H (Negative) Urine RBC 3 (0-5) /hpf Urine WBC 36 H (0-5) /hpf Urine WBC Clumps Occasional H (None) /hpf Ur Squamous Epith Cells 3 (0-4) /hpf Hyaline Casts 4 H (0-2) /lpf Urine Mucus Rare H (None) /hpf 08/11/17 Range/Units 01:00 WBC (3.8-10.6) k/uL RBC (4.30-5.90) m/uL Hgb (13.0-17.5) gm/dL Hct (39.0-53.0) % MCV (80.0-100.0) fL MCH (25.0-35.0) pg MCHC (31.0-37.0) g/dL RDW (11.5-15.5) % Plt Count (150-450) k/uL Neutrophils % % Lymphocytes % % Monocytes % % Eosinophils % % Basophils % % Neutrophils # (1.3-7.7) k/uL Lymphocytes # (1.0-4.8) k/uL Monocytes # (0-1.0) k/uL Eosinophils # (0-0.7) k/uL Basophils # (0-0.2) k/uL Sodium (137-145) mmol/L Potassium (3.5-5.1) mmol/L Chloride (98-107) mmol/L Carbon Dioxide (22-30) mmol/L Anion Gap mmol/L BUN (9-20) mg/dL Creatinine (0.66-1.25) mg/dL Est GFR (CKD-EPI)AfAm (>60 ml/min/1.73 sqM) Est GFR (CKD-EPI)NonAf (>60 ml/min/1.73 sqM) Glucose (74-99) mg/dL POC Glucose (mg/dL) 199 H (75-99) mg/dL POC Glu Shaker Screen Operator ID Chantal Pozo Calcium (8.4-10.2) mg/dL Magnesium (1.6-2.3) mg/dL Total Bilirubin (0.2-1.3) mg/dL AST (17-59) U/L ALT (21-72) U/L Alkaline Phosphatase (38-126) U/L Total Protein (6.3-8.2) g/dL Albumin (3.5-5.0) g/dL Urine Color Urine Appearance (Clear) Urine pH (5.0-8.0) Ur Specific Apex (1.001-1.035) Urine Protein (Negative) Urine Glucose (UA) (Negative) Urine Ketones (Negative) Urine Blood (Negative) Urine Nitrite (Negative) Urine Bilirubin (Negative) Urine Urobilinogen (<2.0) mg/dL Ur Leukocyte Esterase (Negative) Urine RBC (0-5) /hpf Urine WBC (0-5) /hpf Urine WBC Clumps (None) /hpf Ur Squamous Epith Cells (0-4) /hpf Hyaline Casts (0-2) /lpf Urine Mucus (None) /hpf - Radiology Data Radiology results: report reviewed (Computed tomography scan of the brain shows no acute process.) Disposition Clinical Impression: Seizure, Urinary tract infection Disposition: ADMITTED IP TO THIS [facility] Referrals: Joe Franklin MD [Primary Care Provider] - 1-2 days Decision Time: 01:07
[2017-08-11 00:04] LABS: Basophils # (A) 0.1 k/uL (0-0.2); Basophils % (A) 1 %; Eosinophils # (A) 0.5 k/uL (0-0.7); Eosinophils % (A) 5 %; HGB 17.2 gm/dL (13.0-17.5); Lymphocytes # (A) 3.8 k/uL (1.0-4.8); Lymphocytes % (A) 34 %; MCH 29.9 pg (25.0-35.0); MCHC 33.8 g/dL (31.0-37.0); MCV 88.3 fL (80.0-100.0); Mean Platelet Volume 7.1; Monocytes # (A) 0.7 k/uL (0-1.0); Monocytes % (A) 7 %; Neutrophils # (A) 5.9 k/uL (1.3-7.7); Neutrophils % (A) 52 %; Platelet Count 295 k/uL (150-450); RBC 5.77 m/uL (4.30-5.90); RDW 13.5 % (11.5-15.5); WBC 11.3 k/uL (3.8-10.6)
[2017-08-11 00:14] LABS: ALT 36 U/L (21-72); AST 32 U/L (17-59); Albumin 4.8 g/dL (3.5-5.0); Alkaline Phosphatase 102 U/L (38-126); Anion Gap 23 mmol/L; Blood Urea Nitrogen 18 mg/dL (9-20); Calcium 10.2 mg/dL (8.4-10.2); Carbon Dioxide 17 mmol/L (22-30); Chloride 103 mmol/L (98-107); Glucose 156 mg/dL (74-99); Magnesium 2.2 mg/dL (1.6-2.3); Potassium 3.4 mmol/L (3.5-5.1); Sodium 143 mmol/L (137-145); Total Bilirubin 0.8 mg/dL (0.2-1.3); Total Protein 8.1 g/dL (6.3-8.2)
--- NOTE | 2017-08-11 00:36 | CT ---
EXAMINATION TYPE: CT brain wo con DATE OF EXAM: 08/11/2017 COMPARISON: 07/21/2017 HISTORY: seizure CT DLP: 1073.50 mGycm Automated exposure control for dose reduction was used. FINDINGS: There is mild cerebral cortical atrophy. There is no mass effect nor midline shift. There is no sign of intracranial hemorrhage. The calvarium is intact. There is minimal hypodensity around the frontal horns of the lateral ventricles. IMPRESSION: MILD ATROPHY AND CHRONIC SMALL VESSEL ISCHEMIA. NO ACUTE INTRACRANIAL ABNORMALITY. NO CHANGE.
[2017-08-11 00:56] LABS: Appearance,Urine Cloudy (Clear); Bilirubin,Urine Negative (Negative); Blood,Urine Negative (Negative); Color,Urine Light Yellow; Glucose,Urine (UA) Negative (Negative); Hyaline Casts,Urine 4 /lpf (0-2); Ketones,Urine Negative (Negative); Leukocyte Esterase,Urine Large (Negative); Mucus,Urine Rare /hpf; Nitrite,Urine Negative (Negative); Protein,Urine 1+ (Negative); RBC,Urine 3 /hpf (0-5); Squamous Epithelial Cell,Urine 3 /hpf (0-4); Urobilinogen,Urine <2.0 mg/dL (<2.0); WBC,Urine 36 /hpf (0-5)
[2017-08-11 01:04] LABS: Glucose,Whole Blood 199 mg/dL (75-99)
[2017-08-11] MEDS: SODIUM CHLORIDE 0.9% 1,000 ML IV SCH ×3 (01:27→23:21)
[2017-08-11 02:07] VITALS: BMI 25.8
[2017-08-11] MEDS: SULFAMETHOX-TMP 800-160MG 1 EACH TAB PO SCH ×3 (02:42→21:03)
[2017-08-11] MEDS: ATENOLOL 25 MG TAB PO SCH ×2 (08:09→21:04)
[2017-08-11] MEDS: APIXABAN 5 MG TAB PO SCH ×2 (08:09→21:04)
[2017-08-11] MEDS: ASPIRIN 81 MG PO SCH (08:10)
[2017-08-11] MEDS: POTASSIUM CHLORIDE ER 20 MEQ TAB.ER PO SCH (08:10)
[2017-08-11] MEDS: HYDROCHLOROTHIAZIDE 25 MG TAB PO SCH (08:10)
[2017-08-11] MEDS: amLODIPine 10 MG TAB PO SCH (09:44)
[2017-08-11] MEDS ORDERED: LORazepam 0.5 MG TAB PO PRN (20:18)
[2017-08-11] MEDS ORDERED: NALOXONE 0.4 MG/ML 1 ML VIAL IV PRN (20:18)
[2017-08-11] MEDS ORDERED: ONDANSETRON 4 MG/2 ML VIAL IVP PRN (20:18)
[2017-08-11] MEDS ORDERED: ACETAMINOPHEN TAB 325 MG TAB PO PRN (20:18)
[2017-08-11] MEDS ORDERED: MELATONIN 3 MG TABLET PO PRN (20:18)
--- NOTE | 2017-08-11 20:56 | HP ---
HISTORY AND PHYSICAL DATE OF ADMISSION: 08/11/2017 PRESENT COMPLAINT: Abnormal movement activity. HISTORY OF PRESENTING COMPLAINT: This is a very pleasant 77-year-old patient who was here earlier in the month. Chronic stable medical conditions include hypertension, hyperlipidemia, chronic atrial fibrillation, anticoagulation. The patient on last admission had a similar presentation like this time. The patient in his sleep started shaking movements of his hands/arms that lasted for about a minute and patient was unresponsive after that for some time. He has no recollection of this episode. There was no bowel or bladder incontinence or tongue biting. Last admission, patient did have an EEG that was negative, seen by Dr. Couch. At that point, he decided not to use any antiseizure medications. CT scan did show some chronic changes. REVIEW OF SYSTEMS: CONSTITUTIONAL: None. HEENT: None. RESPIRATORY: None. CARDIOVASCULAR: None. GASTROINTESTINAL: None. GENITOURINARY: None. MUSCULOSKELETAL: None. DERMATOLOGICAL: None. HEMATOLOGIC: None. LYMPHATIC: None. PSYCHIATRY: None. NEUROLOGICAL: As above. PAST MEDICAL HISTORY: COPD, hyperlipidemia, hypertension, abnormal movement disorder, atrial fibrillation. PAST SURGICAL HISTORY: Cardiac catheterization, hernia repair, cataract surgery. SOCIAL HISTORY: Does not smoke. No alcohol. Retired. Lives with his . FAMILY HISTORY: Heart disease. HOME MEDICATIONS: 1. Norvasc 10 mg a day. 2. Potassium 40 mEq a day. 3. Hydrochlorothiazide 25 mg p.o. daily. 4. Lipitor 40 mg q.h.s. 5. Tenormin 25 mg b.i.d. 6. Aspirin 81 mg daily. 7. Eliquis 5 mg b.i.d. ALLERGIES: None. EXAMINATION: Temperature 98.4, pulse 62, respirations 16, blood pressure 105/61, pulse ox 96% on room air. GENERAL APPEARANCE: Average built, lying in bed, comfortable. EYES: Pupils equal. Conjunctivae normal. HEENT: External appearance of nose and ears normal. Oral cavity normal. NECK: JVD not raised. Mass not palpable. RESPIRATORY: Effort normal. LUNGS: Fair air entry. CARDIOVASCULAR: Heart sounds irregular. No edema. ABDOMEN: Soft, nontender. Liver and spleen not palpable. LYMPHATIC: No lymph nodes palpable in neck or axillae. PSYCHIATRY: Alert and oriented x3. Mood and affect normal. INVESTIGATIONS: White count 11.3. Potassium 3.4, BUN 18, creatinine 0.90. UA positive for leuko esterase, WBC. ASSESSMENT: 1. This is the 3rd time the patient has had an episode with a shaking episode, loss of consciousness, no recollection of the symptoms. Even though the EEG is negative, this is this is probably highly likely focal leading to a generalized seizure. 2. Paroxysmal atrial fibrillation for which patient is chronically on Eliquis. 3. Essential hypertension. 4. Hyperlipidemia. 5. Acute urinary tract infection. PLAN: Home medications will be resumed. We will start the patient on Keppra. Neurology was consulted. Seizure precautions are in place. Also, patient is put on a Bactrim DS. MMODL / IJN: [id number] /
[2017-08-11] MEDS ORDERED: ATORVASTATIN 40 MG TAB PO SCH (21:00)
[2017-08-11] MEDS: levETIRAcetam 500 MG TAB PO SCH (21:06)
--- NOTE | 2017-08-11 22:56 | P.CNNES ---
History of Present Illness Consult date: 08/11/17 Reason for Consult: Patient admitted with possible recurrent seizures. History of Present Illness: This patient is a 77-year-old right-handed white male brought into the emergency room yesterday with symptoms of possible seizure activity. Patient apparently went to bed yesterday evening and had what appeared to the to be a generalized seizure. According to the ER physician Dr. Chow the patient was unresponsive for approximately 10 seconds. felt he had generalized tonic-clonic seizure activity during these 10 minutes of unresponsiveness. The patient did seem to be quite confused when the seizure activity stopped and possibly also postictal. This has been the third episode to occur for the patient over the last several months. Patient was recently seen for similar event in the beginning of July 2017. He underwent further evaluation including computed tomography scan of the brain and routine EEG both of which were negative for any acute findings. Apparently the patient did have spells even as a young teenager but the exact details are still not very clear. The patient was admitted to the hospital for further evaluation given these recurrent spells. Laboratory testing in the emergency room revealed him to have a urinary tract infection. The patient will undergo routine EEG today which will be reviewed. As noted previously at the beginning of July she did have an EEG which was normal for his age. The last 2 events have occurred when the patient has been sleeping. According to the patient he notices twitching of his right arm. The patient was seen in the emergency room by Dr. Chow who ordered a computed tomography scan of the brain yesterday. CAT scan revealed mild atrophy and chronic small vessel ischemic changes. No evidence of acute stroke or hemorrhage. The patient has no previous history of seizures or head injury. As noted as a young teenager he had some stereotypical events. The patient is now been admitted and neurology has been consulted for further evaluation and recommendations. Review of Systems Constitutional: Denies chills, Denies fever Eyes: denies blurred vision, denies pain Ears, nose, mouth and throat: Denies headache, Denies sore throat Cardiovascular: Denies chest pain, Denies shortness of breath Respiratory: Denies cough Gastrointestinal: Denies abdominal pain, Denies diarrhea, Denies nausea, Denies vomiting Musculoskeletal: Denies myalgias Integumentary: Denies pruritus, Denies rash Neurological: Reports change in mentation, Reports confusion, Reports convulsions, Reports seizures, Reports syncope, Denies numbness, Denies weakness Psychiatric: Denies anxiety, Denies depression Endocrine: Denies fatigue, Denies weight change Past Medical History Past Medical History: Atrial Fibrillation, COPD, Hyperlipidemia, Hypertension, Seizure Disorder, Sleep Apnea/CPAP/BIPAP Additional Past Medical History / Comment(s): dehydration, atrial fibrillation, History of Any Multi-Drug Resistant Organisms: None Reported Past Surgical History: Heart Catheterization, Hernia Repair Additional Past Surgical History / Comment(s): cataracts Past Anesthesia/Blood Transfusion Reactions: No Reported Reaction Past Psychological History: No Psychological Hx Reported Smoking Status: Former smoker Past Alcohol Use History: None Reported Past Drug Use History: None Reported Additional Drug Use History / Comment(s): only smoked for a couple years in his 20's - Past Family History Father Additional Family Medical History / Comment(s): smoker, and had heart attack Mother Family Medical History: No Reported History Medications and Allergies Home Medications Medication Instructions Recorded Confirmed Type Atorvastatin Calcium [Lipitor] 40 mg PO HS 04/11/17 08/11/17 History Hydrochlorothiazide 25 mg PO DAILY 04/11/17 08/11/17 History Potassium Chloride ER [K-Dur 20] 40 meq PO DAILY 04/11/17 08/11/17 History amLODIPine BESYLATE [Norvasc] 10 mg PO DAILY 04/11/17 08/11/17 History Apixaban [Eliquis] 5 mg PO BID #60 tab 04/13/17 08/11/17 Rx Aspirin 81 mg PO DAILY chew 04/13/17 08/11/17 Rx Atenolol [Tenormin] 25 mg PO BID #60 tab 07/23/17 08/11/17 Rx Allergies Allergy/AdvReac Type Severity Reaction Status Date / Time No Known Allergies Allergy Verified 08/11/17 07:50 Physical Examination - Vital Signs Vital Signs: Vital Signs Temp Pulse Pulse Pulse Resp BP BP 08/11/17 07:00 97.8 F 64 16 08/11/17 06:07 97.6 F 71 16 08/11/17 04:07 97.6 F 70 16 08/11/17 03:07 97.5 F L 68 16 08/11/17 02:07 98.1 F 68 18 138/65 08/11/17 01:32 55 L 18 08/11/17 00:15 65 18 131/78 08/10/17 23:31 98.7 F 83 18 111/69 BP Pulse Ox 08/11/17 07:00 119/64 97 08/11/17 06:07 105/56 99 08/11/17 04:07 107/64 98 08/11/17 03:07 115/49 98 08/11/17 02:07 98 08/11/17 01:32 119/66 08/11/17 00:15 95 08/10/17 23:31 94 L Intake and Output 08/10/17 08/11/17 08/11/17 22:59 06:59 14:59 Intake Total 200 Balance 200 Intake: IV 200 Sodium Chloride 0.9% 1, 200 000 ml @ 100 mls/hr IV . Q10H [facility] Rx#:[id number] Other: Voiding Method Toilet Toilet # Voids 1 Weight 79.379 kg - Constitutional General appearance: average body habitus, cooperative - EENT EENT: PERRL, mucous membranes moist - Respiratory Respiratory: lungs clear, normal breath sounds - Cardiovascular Cardiovascular: regular rate, normal S1, normal S2 Extremities: no peripheral edema bilaterally - Gastrointestinal Gastrointestinal: normoactive bowel sounds - Integumentary Integumentary: normal - Neurologic Cranial nerve examination: PERRL, EOMI, V1/V2/V3 grossly intact, face symmetric , tongue midline, intact gag reflex, intact corneal reflex, normal palatal elevation Speech examination: intact Sensorimotor examination: intact Detailed motor examination: grossly full strength in all extremities Motor examination - right side: 4/5: biceps, triceps, wrist flexion, wrist extension, method consultant, hip flexors, knee extensors, dorsiflexion, toe extension (EHL) , plantarflexion Motor examination - left side: 4/5: biceps, triceps, wrist flexion, wrist extension, method consultant, hip flexors, knee extensors, dorsiflexion, toe extension (EHL) , plantarflexion Detailed sensory examination: intact Reflex and gait examination: intact Reflexes: 1+: ankle, bicep, knee, tricep - Musculoskeletal Musculoskeletal: no pain - Psychiatric Psychiatric: mood/affect appropriate, cooperative Results - Laboratory Findings CBC and BMP: 08/10/17 23:50 08/10/17 23:50 Abnormal Lab Findings: Abnormal Labs 08/10/17 08/10/1708/11/18 23:50 23:50 00:31 WBC 11.3 H Potassium 3.4 L Carbon Dioxide 17 L Glucose 156 H POC Glucose (mg/dL) Urine Protein 1+ H Ur Leukocyte Esterase Large H Urine WBC 36 H Urine WBC Clumps Occasional H Hyaline Casts 4 H Urine Mucus Rare H 08/11/17 01:00 WBC Potassium Carbon Dioxide Glucose POC Glucose (mg/dL) 199 H Urine Protein Ur Leukocyte Esterase Urine WBC Urine WBC Clumps Hyaline Casts Urine Mucus Assessment and Plan (1) Seizure Current Visit: Yes Status: Acute Code(s): R56.9 - UNSPECIFIED CONVULSIONS SNOMED Code(s): 47375079 (2) Acute encephalopathy Current Visit: No Status: Acute Code(s): G93.40 - ENCEPHALOPATHY, UNSPECIFIED SNOMED Code(s): 55372599 (3) Change in mental status Current Visit: No Status: Acute Code(s): R41.82 - ALTERED MENTAL STATUS, UNSPECIFIED SNOMED Code(s): 825791826 (4) New onset atrial fibrillation Current Visit: No Status: Acute Code(s): I48.91 - UNSPECIFIED ATRIAL FIBRILLATION SNOMED Code(s): 63756575 Plan: This patient is a 77-year-old male who was admitted today for further evaluation of possible seizure disorder. This is the third events that the patient has experienced over the last several months. 2 of the events have occurred during sleep in which the patient notices twitching and movements of his right arm. This is followed by episode of confusion. The patient apparently was asleep and had an episode what was described by his as a generalized seizure. It lasted 10 seconds or so in duration. The patient remained unresponsive for about 10 minutes following this event. He was somewhat confused. This is the third episode that he has had and he was brought into the emergency room subsequent admitted to Hospital for further evaluation. He underwent a routine EEG today which will be reviewed. His last EEG done at the beginning of this month was normal for his age with no epileptiform discharges. This EEG will be reviewed and further recommendations will be given pending these results. His overall prognosis at this time remains guarded. He is aware of the [place] driving law which states he should not be driving for 6 months following any seizure-like event. We will continue close neurological follow-up for the patient during this admission. His overall prognosis at this time remains guarded. Time with Patient: Greater than 30
[2017-08-12 08:56] LABS: Cholesterol 115 mg/dL (<200); HDL Cholesterol 36 mg/dL (40-60); LDL Cholesterol,Calculated 47 mg/dL (0-99); Triglycerides 159 mg/dL (<150)
[2017-08-12] MEDS: levETIRAcetam 500 MG TAB PO SCH (10:20)
[2017-08-12] MEDS ORDERED: VALPROATE SODIUM 1,000 MG in SODIUM CHLORIDE 0.9% 50 ML IVPB ONE (10:30)
[2017-08-12] MEDS: HYDROCHLOROTHIAZIDE 25 MG TAB PO SCH (11:41)
[2017-08-12] MEDS: amLODIPine 10 MG TAB PO SCH (11:41)
[2017-08-12] MEDS: ASPIRIN 81 MG PO SCH (11:41)
[2017-08-12] MEDS: POTASSIUM CHLORIDE ER 20 MEQ TAB.ER PO SCH (11:41)
[2017-08-12] MEDS: SULFAMETHOX-TMP 800-160MG 1 EACH TAB PO SCH (11:41)
[2017-08-12] MEDS: ATENOLOL 25 MG TAB PO SCH (11:41)
[2017-08-12] MEDS: APIXABAN 5 MG TAB PO SCH (11:42)
[2017-08-12] MEDS: SODIUM CHLORIDE 0.9% 1,000 ML IV SCH (11:48)
[2017-08-12 15:32] VITALS: BP 118/60; PULSE 66; RESP 18; TEMP 97.5
--- NOTE | 2017-08-12 17:57 | P.PN ---
Subjective Progress Note Date: 08/12/17 This patient is a 77 year old male who is being evaluated for possible seizure disorder with multiple recent recurrent stereotypical events. The patient underwent a routine EEG today which was reviewed. His EEG was abnormal as there was evidence of temporal sharp waves bilaterally. It was recommended to start this patient on Depakote for seizure prophylaxis. He was recommended to be loaded with IV Depacon 1 g IV piggyback today followed by a maintenance dose of Depakote 500 mg by mouth twice a day. He is to have a Depakote level done in 1 week and sent to our office for review. Apparently the patient a very rough night yesterday evening. He had evidence of delirium and sundowners syndrome. It is still unclear if this is contributing to much of his nocturnal events which are been described by his is seizure-like. Given the abnormality on his EEG up would be advisable to empirically start him on anticonvulsant therapy and to monitor him closely over the next month. Patient is being considered for discharge home soon and should follow-up in the outpatient neurology clinic in 3-4 weeks. His overall prognosis at this time remains guarded. Objective - Vital Signs Vital signs: Vital Signs Temp 97.5 F L 08/12/17 15:00 Pulse 66 08/12/17 15:00 Resp 18 08/12/17 15:00 BP 118/60 08/12/17 15:00 Pulse Ox 96 08/12/17 15:00 Intake & Output 08/11/17 08/12/17 08/12/17 18:59 06:59 18:59 Intake Total 800 900 Balance 800 900 Intake: IV 800 900 Sodium Chloride 0.9% 1, 800 900 000 ml @ 100 mls/hr IV . Q10H [facility] Rx#:[id number] Other: Voiding Method Toilet Toilet # Voids 5 1 1 - Exam Physical Examinination: PHYSICAL EXAMINATION: Patient is resting comfortably in bed. VITAL SIGNS: Blood pressure is [118/60]. Heart rate is [67]. Respiration is [18] . Temperature is [97.5]. HEENT: Head is atraumatic, neck is supple, there were no carotid bruits. CHEST: Lungs are clear to auscultation and percussion. CARDIAC: S1, S2 normal rate and rhythm. There is no murmur. ABDOMEN: Soft and nontender. Bowel sounds are present. EXTREMITIES: There is no pedal edema. Peripheral pulses are present. Neurological examination: Patient has a nonfocal neurological examination that is unchanged from yesterday. - Labs CBC & Chem 7: 08/10/17 23:50 08/10/17 23:50 Labs: Abnormal Lab Results - Last 24 Hours (Table) 08/12/17 Range/Units 08:25 Triglycerides 159 H (<150) mg/dL HDL Cholesterol 36 L (40-60) mg/dL Microbiology - Last 24 Hours (Table) 08/11/17 00:30 Urine Culture - Final Urine,Clean Catch 08/11/17 20:38 Urine Culture - Preliminary Urine,Voided Assessment and Plan (1) Seizure Current Visit: Yes Status: Acute Code(s): R56.9 - UNSPECIFIED CONVULSIONS SNOMED Code(s): 21771734 (2) Acute encephalopathy Current Visit: No Status: Acute Code(s): G93.40 - ENCEPHALOPATHY, UNSPECIFIED SNOMED Code(s): 30495011 (3) Change in mental status Current Visit: No Status: Acute Code(s): R41.82 - ALTERED MENTAL STATUS, UNSPECIFIED SNOMED Code(s): 948700504 (4) New onset atrial fibrillation Current Visit: No Status: Acute Code(s): I48.91 - UNSPECIFIED ATRIAL FIBRILLATION SNOMED Code(s): 62631348 Plan: This patient is a 77-year-old male who was admitted today for further evaluation of possible seizure disorder. This is the third events that the patient has experienced over the last several months. 2 of the events have occurred during sleep in which the patient notices twitching and movements of his right arm. This is followed by episode of confusion. The patient apparently was asleep and had an episode what was described by his as a generalized seizure. It lasted 10 seconds or so in duration. The patient remained unresponsive for about 10 minutes following this event. He was somewhat confused. This is the third episode that he has had and he was brought into the emergency room subsequent admitted to Hospital for further evaluation. He underwent a routine EEG today which will be reviewed. His last EEG done at the beginning of this month was normal for his age with no epileptiform discharges. This EEG will be reviewed and further recommendations will be given pending these results. His overall prognosis at this time remains guarded. He is aware of the [place] driving law which states he should not be driving for 6 months following any seizure-like event. Patient was able to complete his EEG which was reviewed. His EEG was abnormal as there was evidence of temporal sharp waves noted bilaterally. Given the abnormality on his EEG we have recommended to load the patient with IV Depacon for anticonvulsant therapy. He is to be maintained on Depakote 500 mg 1 by mouth twice a day. He is having Depakote level done in 1 week and sent to our office for review. We will order a Depakote level at to be done for him in the morning if he is still an inpatient. Attending physician Dr. Mast is considering possible discharge of the patient later today as he has symptoms of sundowners at night. We will continue close neurological follow-up for the patient during this admission. We have discussed the EEG findings today with Dr. Mast. He will relayed this to the patient and his . They should follow-up in the outpatient neurology clinic in 3-4 weeks following discharge. His overall prognosis at this time remains guarded.
[2017-08-12] MEDS ORDERED: DIVALPROEX 500 MG TABLET.DR PO SCH (18:00)
--- NOTE | 2017-08-12 21:45 | EEG ---
ELECTROENCEPHALOGRAM REPORT DATE OF EE08/11/2017. REFERRING PHYSICIAN: Dr. Mast. CONSULTING AND INTERPRETING PHYSICIAN: Dr. Andrew Couch MD ELECTROENCEPHALOGRAPHIC EXAMINATION REPORT: INDICATION FOR EXAMINATION: This patient is a 77-year-old male being evaluated for recurrent episodes of seizure activity. This is third admission for the patient with symptoms of generalized seizure noted by his occurring for 10-15 seconds in duration. The 2 seizures recently occurred during sleep. EEG for further evaluation. AGE: [age]. EEG FINDINGS: A routine 21 channel awake digital EEG recording was accomplished utilizing the 10-20 international system with bipolar and referential montages. The background activity in the most alert resting state consists of a low to medium amplitude, fairly well developed and well sustained 7-8 Hz activity over the posterior head regions. This posterior rhythm attenuates to eye opening. There was a small amount of low amplitude 18-20 Hz beta activity seen maximally over the anterior head regions. Muscle and movement artifact was observed on several occasions during the tracing. Hyperventilation was not performed. Photic stimulation at flash frequencies of 2-30 Hz produced a minimal occipital driving response. The main feature of this tracing is the occurrence on several occasions of short epochs of bitemporal epileptiform discharges lasting for 2-3 seconds in duration. This was seen on several occasions during the recording. IMPRESSION: This EEG is abnormal due to the bitemporal epileptiform discharges seen during this tracing. This finding suggests seizure disorder of deep level origin. Clinical correlation is strongly recommended. MMJOSELUISL / EZEKIELN: [id number] /
--- NOTE | 2017-08-13 08:58 | DS ---
DISCHARGE SUMMARY DATE OF ADMISSION: August 11, 2017 DATE OF DISCHARGE: August 12, 2017. FINAL DIAGNOSES: 1. Focal leading to generalized seizures. 2. Paroxysmal atrial fibrillation for which patient chronically on Eliquis. 3. Essential hypertension. 4. Hyperlipidemia. 5. Acute urinary tract infection. HOSPITAL COURSE: This patient presented with episodes he has had before. Now the EEG did confirm the seizure disorder for which patient is put on Depakote. I spoke at length with the patient's and also spoke to Dr. Couch. No further episodes. Patient's to take him home because patient does sund. EXAM: Lungs are clear. Cardiovascular 1st and 2nd sounds normal. Discharge planning more than 35 minutes. DISCHARGE MEDICATIONS: 1. Lipitor 40 mg q.h.s. 2. Hydrochlorothiazide 25 mg daily. 3. Potassium 20 mEq p.o. daily. 4. Norvasc 10 mg p.o. daily. 5. Eliquis 5 mg p.o. b.i.d. 6. Aspirin 81 mg p.o. daily. 7. Tenormin 25 mg p.o. b.i.d. 8. Depakote 500 mg p.o. b.i.d. 9. Bactrim DS, patient to complete course. FOLLOWUP: Follow up with Dr. Couch on September 02, 2017. Follow up with Dr. Franklin's on August 16, 2017. Seizure precautions and no driving. Labs: Patient to have a Depakote level drawn in [address] Franklin. MMODL / IJN: [id number] /
== END 2017-08-12 19:05 | disposition home or self-care (01) | DRG 101 ==
LOC: SUPCPDRO 23:28 → EC 23:28 → 5MS5E 08-11 01:07 → OBSVTOIN 08-12 13:41
PROVIDERS: ADMIT Hospitalist; ATTEND Hospitalist
DX: G40.409 Other generalized epilepsy and epileptic syndromes, not intractable, without status epilepticus (principal); F05 Delirium due to known physiological condition; I48.0 Paroxysmal atrial fibrillation; N39.0 Urinary tract infection, site not specified; J44.9 Chronic obstructive pulmonary disease, unspecified; R40.2362 Coma scale, best motor response, obeys commands, at arrival to emergency department; R40.2142 Coma scale, eyes open, spontaneous, at arrival to emergency department; R40.2242 Coma scale, best verbal response, confused conversation, at arrival to emergency department; I10 Essential (primary) hypertension; G47.30 Sleep apnea, unspecified; E78.5 Hyperlipidemia, unspecified; Z79.01 Long term (current) use of anticoagulants; Z79.82 Long term (current) use of aspirin; Z79.899 Other long term (current) drug therapy; Z98.49 Cataract extraction status, unspecified eye; Z87.891 Personal history of nicotine dependence; Z82.49 Family history of ischemic heart disease and other diseases of the circulatory system
CPT/HCPCS: 36415; 70450; 80053; 80061; 81001; 83735; 85025; 87086; 93005; 95819; 96365; 99285

== ENCOUNTER → 2017-11-01 | Outpatient (CLI) | payer MEDICARE, OTHER ==
[2017-11-01 09:28] LABS: Prothrombin Time 113.3 sec (9.0-12.0)
[2017-11-01 09:46] LABS: INR >10.0 (<1.2)
== END | disposition home or self-care (01) ==
LOC: LABWHC1 08:57
PROVIDERS: ATTEND Internal Medicine Cardiovascular Disease
DX: I48.91 Unspecified atrial fibrillation (principal)
CPT/HCPCS: 36415; 85610

== ENCOUNTER 2018-07-15 15:15 | Emergency (ER) | payer MEDICARE, OTHER ==
[2018-07-15 15:22] VITALS: RESP 18
[2018-07-15] MEDS ORDERED: SODIUM CHLORIDE 0.9% 1,000 ML IV STA (15:31)
[2018-07-15 15:52] LABS: Basophils % (A) 1 %; Eosinophils # (A) 0.2 k/uL (0-0.7); Eosinophils % (A) 3 %; HGB 15.7 gm/dL (13.0-17.5); Lymphocytes # (A) 1.2 k/uL (1.0-4.8); Lymphocytes % (A) 21 %; MCH 30.9 pg (25.0-35.0); MCHC 33.5 g/dL (31.0-37.0); MCV 92.4 fL (80.0-100.0); Mean Platelet Volume 6.8; Monocytes # (A) 0.6 k/uL (0-1.0); Monocytes % (A) 10 %; Neutrophils # (A) 3.7 k/uL (1.3-7.7); Neutrophils % (A) 62 %; Platelet Count 133 k/uL (150-450); RBC 5.08 m/uL (4.30-5.90)
[2018-07-15 16:03] LABS: ALT 39 U/L (21-72); AST 36 U/L (17-59); Acetaminophen <10.0 ug/mL; Albumin 3.7 g/dL (3.5-5.0); Alcohol <10 mg/dL; Alkaline Phosphatase 65 U/L (38-126); Anion Gap 6 mmol/L; Blood Urea Nitrogen 18 mg/dL (9-20); Calcium 9.1 mg/dL (8.4-10.2); Carbon Dioxide 26 mmol/L (22-30); Chloride 101 mmol/L (98-107); Glucose 126 mg/dL (74-99); Potassium 4.8 mmol/L (3.5-5.1); Salicylate <1.0 mg/dL; Sodium 133 mmol/L (137-145); Total Bilirubin 0.9 mg/dL (0.2-1.3); Total Protein 6.7 g/dL (6.3-8.2)
[2018-07-15 16:09] LABS: Valproic Acid (Depakene) 72.3 ug/mL
--- NOTE | 2018-07-15 16:28 | ED ---
Seizure HPI - General Chief Complaint: Seizure Stated Complaint: Seizure Time Seen by Provider: 07/15/18 15:30 Source: patient, family, RN notes reviewed, old records reviewed Mode of arrival: ambulatory Limitations: no limitations - History of Present Illness Initial Comments: This is a 70-year-old male the ER for evaluation of seizure recurrent seizure history of seizures on Depakote. Patient's been taking all medication as prescribed and a seizure every couple weeks. Patient's seizure was self limiting today. He had no headache nausea no recent nausea vomiting or diarrhea. No recent fevers. He took a nap after seizure and then just kind of felt like he was off. He wanted to the ER for evaluation. Upon arrival to the ER he feels well MD Complaint: seizure -: hour(s) Description of Episode: tonic-clonic movement, post-event confusion -: second(s) Witnessed: yes - by bystander Trauma: No Seizure History: known seizure disorder Possible Precipitating Event: none Associated Symptoms: denies other symptoms Treatments Prior to Arrival: none - Related Data Home Medications Medication Instructions Recorded Confirmed Hydrochlorothiazide 25 mg PO DAILY 04/11/17 07/15/18 Potassium Chloride ER [K-Dur 20] 40 meq PO DAILY 04/11/17 07/15/18 amLODIPine BESYLATE [Norvasc] 10 mg PO DAILY 04/11/17 07/15/18 Acetaminophen Tab [Tylenol] 325 mg PO Q8HR 07/15/18 07/15/18 Pravastatin Sodium [Pravachol] 40 mg PO HS 07/15/18 07/15/18 Warfarin [Coumadin] 1 mg PO MO 07/15/18 07/15/18 Warfarin [Coumadin] 1.5 mg PO SUTUWETHFRSA 07/15/18 07/15/18 Previous Rx's Medication Instructions Recorded Atenolol [Tenormin] 25 mg PO BID #60 tab 07/23/17 Divalproex [Depakote] 500 mg PO BID #60 tablet. 08/12/17 Allergies Allergy/AdvReac Type Severity Reaction Status Date / Time No Known Allergies Allergy Verified 07/15/18 16:03 Review of Systems ROS Statement: Those systems with pertinent positive or pertinent negative responses have been documented in the HPI. ROS Other: All systems not noted in ROS Statement are negative. Past Medical History Past Medical History: Atrial Fibrillation, COPD, Hyperlipidemia, Hypertension, Seizure Disorder, Sleep Apnea/CPAP/BIPAP Additional Past Medical History / Comment(s): dehydration, atrial fibrillation, History of Any Multi-Drug Resistant Organisms: None Reported Past Surgical History: Heart Catheterization, Hernia Repair Additional Past Surgical History / Comment(s): cataracts Past Anesthesia/Blood Transfusion Reactions: No Reported Reaction Past Psychological History: No Psychological Hx Reported Smoking Status: Former smoker Past Alcohol Use History: None Reported Past Drug Use History: None Reported - Past Family History Father Additional Family Medical History / Comment(s): smoker, and had heart attack Mother Family Medical History: No Reported History General Exam Limitations: no limitations General appearance: alert, in no apparent distress Head exam: Present: atraumatic, normocephalic, normal inspection Eye exam: Present: normal appearance, PERRL, EOMI. Absent: scleral icterus, conjunctival injection, periorbital swelling ENT exam: Present: normal exam, mucous membranes moist Neck exam: Present: normal inspection. Absent: tenderness, meningismus, lymphadenopathy Respiratory exam: Present: normal lung sounds bilaterally. Absent: respiratory distress, wheezes, rales, rhonchi, stridor Cardiovascular Exam: Present: regular rate, normal rhythm, normal heart sounds. Absent: systolic murmur, diastolic murmur, rubs, gallop, clicks GI/Abdominal exam: Present: soft, normal bowel sounds. Absent: distended, tenderness, guarding, rebound, rigid Extremities exam: Present: normal inspection, full ROM, normal capillary refill. Absent: tenderness, pedal edema, joint swelling, calf tenderness Back exam: Present: normal inspection Neurological exam: Present: alert, oriented X3, CN II-XII intact Psychiatric exam: Present: normal affect, normal mood Skin exam: Present: warm, dry, intact, normal color. Absent: rash Course Vital Signs 07/15/18 07/15/18 15:18 17:07 Temperature 97.7 F Pulse Rate 63 64 Respiratory 18 18 Rate Blood Pressure 120/73 135/87 O2 Sat by Pulse 98 97 Oximetry - Reevaluation(s) Reevaluation #1: 07/15/18 17:29 Medical records reviewed Reevaluation #2: 07/15/18 17:29 Patient feels back to baseline Medical Decision Making - Medical Decision Making 78 male the ER for evaluation presented for evaluation regards to recurrent seizure. Patient was not feeling well earlier but at this time and feels normal. Back to baseline. He is stable for discharge - Lab Data Result diagrams: 07/15/18 15:30 07/15/18 15:30 Lab Results 07/15/18 07/15/18 Range/Units 15:30 15:30 WBC 6.0 (3.8-10.6) k/uL RBC 5.08 (4.30-5.90) m/uL Hgb 15.7 (13.0-17.5) gm/dL Hct 47.0 (39.0-53.0) % MCV 92.4 (80.0-100.0) fL MCH 30.9 (25.0-35.0) pg MCHC 33.5 (31.0-37.0) g/dL RDW 14.0 (11.5-15.5) % Plt Count 133 L (150-450) k/uL Neutrophils % 62 % Lymphocytes % 21 % Monocytes % 10 % Eosinophils % 3 % Basophils % 1 % Neutrophils # 3.7 (1.3-7.7) k/uL Lymphocytes # 1.2 (1.0-4.8) k/uL Monocytes # 0.6 (0-1.0) k/uL Eosinophils # 0.2 (0-0.7) k/uL Basophils # 0.0 (0-0.2) k/uL Sodium 133 L (137-145) mmol/L Potassium 4.8 (3.5-5.1) mmol/L Chloride 101 (98-107) mmol/L Carbon Dioxide 26 (22-30) mmol/L Anion Gap 6 mmol/L BUN 18 (9-20) mg/dL Creatinine 0.92 (0.66-1.25) mg/dL Est GFR (CKD-EPI)AfAm >90 (>60 ml/min/1.73 sqM) Est GFR (CKD-EPI)NonAf 80 (>60 ml/min/1.73 sqM) Glucose 126 H (74-99) mg/dL Calcium 9.1 (8.4-10.2) mg/dL Total Bilirubin 0.9 (0.2-1.3) mg/dL AST 36 (17-59) U/L ALT 39 (21-72) U/L Alkaline Phosphatase 65 (38-126) U/L Total Protein 6.7 (6.3-8.2) g/dL Albumin 3.7 (3.5-5.0) g/dL Salicylates <1.0 mg/dL Acetaminophen <10.0 ug/mL Valproic Acid 72.3 ug/mL Serum Alcohol <10 mg/dL - EKG Data -: EKG Interpreted by Me (EKG shows normal sinus rhythm rate of 75, HI 136, QRS 154, QTc 451) Disposition Clinical Impression: Recurrent seizures Disposition: HOME SELF-CARE Instructions (If sedation given, give patient instructions): Recurrent Seizures in Adults (ED) Is patient prescribed a controlled substance at d/c from ED?: No Referrals: Joe Franklin MD [Primary Care Provider] - 1-2 days
[2018-07-15 17:08] VITALS: PULSE 64
[2018-07-15 18:06] VITALS: BP 127/89; TEMP 98
== END 2018-07-15 18:15 | disposition home or self-care (01) ==
LOC: EC 15:15
DX: G40.909 Epilepsy, unspecified, not intractable, without status epilepticus (principal); I48.91 Unspecified atrial fibrillation; E78.5 Hyperlipidemia, unspecified; I10 Essential (primary) hypertension; G47.30 Sleep apnea, unspecified; Z87.891 Personal history of nicotine dependence; Z79.01 Long term (current) use of anticoagulants; Z79.891 Long term (current) use of opiate analgesic; Z79.899 Other long term (current) drug therapy; Z95.818 Presence of other cardiac implants and grafts; Z99.89 Dependence on other enabling machines and devices
CPT/HCPCS: 36415; 93005; 80164; 80053; 85025; 83520 ×2; 99284; 96360; 96361; G0480; 80320

== ENCOUNTER 2019-08-15 11:13 | Emergency (ER) | payer MEDICARE, OTHER ==
[2019-08-15 11:18] VITALS: TEMP 97.5
--- NOTE | 2019-08-15 12:11 | XR ---
EXAMINATION TYPE: XR ribs RT w pa chest xray DATE OF EXAM: 08/15/2019 COMPARISON: NONE HISTORY: Pain TECHNIQUE: Single view of the chest right views of the ribs are submitted. FINDINGS: The lungs are clear. Upper inflation compatible COPD. No Evidence for pneumothorax. No akash dence for focal contusion. Mediastinal structures are midline. Evaluation of the ribs fails to demo nstrate evidence for displaced rib fracture or secondary sign of rib fracture. IMPRESSION: COPD. Otherwise negative study.
--- NOTE | 2019-08-15 12:17 | ED ---
General Adult HPI - General Source: patient, family, RN notes reviewed Mode of arrival: wheelchair Limitations: no limitations <Kirk Dominguez - Last Filed: 08/15/19 13:09> <Primo Rosas - Last Filed: 08/15/19 14:25> - General Chief complaint: Fall Stated complaint: fall, head injury Time Seen by Provider: 08/15/19 11:31 - History of Present Illness Initial comments: 79-year-old male with a past medical history of atrial fibrillation, hyperlipidemia, hypertension, COPD currently taking Coumadin and a baby aspirin daily presents to the emergency department for fall. Patient states that around 3:30 AM or approximately 8 hours prior to arrival patient was walking into the bathroom. States he was going to sit down on the toilet when he went to grab a rack on the wall. Patient states that the rack came out of the wall and he fell hitting the right side of his head. He did not lose consciousness. He is not complaining of headache or neck pain. He does however have some minimal pain noted on the right lower lateral ribs. States he only noticed this this morning when he coughed and it hurt. He denies abdominal pain. Denies back pain. She denies any lightheadedness, chest pain, or any other symptoms preceding this fall. Patient has no other complaints at this time including shortness of jen th, chest pain, abdominal pain, nausea or vomiting, headache, or visual changes. (Kirk Dominguez) - Related Data Home Medications Medication Instructions Recorded Confirmed Hydrochlorothiazide 25 mg PO DAILY 04/11/17 07/15/18 Potassium Chloride ER [K-Dur 20] 40 meq PO DAILY 04/11/17 07/15/18 amLODIPine BESYLATE [Norvasc] 10 mg PO DAILY 04/11/17 07/15/18 Acetaminophen Tab [Tylenol] 325 mg PO Q8HR 07/15/18 07/15/18 Pravastatin Sodium [Pravachol] 40 mg PO HS 07/15/18 07/15/18 Warfarin [Coumadin] 1 mg PO MO 07/15/18 07/15/18 Warfarin [Coumadin] 1.5 mg PO SUTUWETHFRSA 07/15/18 07/15/18 Previous Rx's Medication Instructions Recorded Atenolol [Tenormin] 25 mg PO BID #60 tab 07/23/17 Divalproex [Depakote] 500 mg PO BID #60 tablet. 08/12/17 Allergies Allergy/AdvReac Type Severity Reaction Status Date / Time No Known Allergies Allergy Verified 08/15/19 11:18 Review of Systems ROS Other: All systems not noted in ROS Statement are negative. <Kirk Dominguez - Last Filed: 08/15/19 13:09> ROS Other: All systems not noted in ROS Statement are negative. <rPimo Rosas - Last Filed: 08/15/19 14:25> ROS Statement: Those systems with pertinent positive or pertinent negative responses have been documented in the HPI. Past Medical History Past Medical History: Atrial Fibrillation, COPD, Hyperlipidemia, Hypertension, Seizure Disorder, Sleep Apnea/CPAP/BIPAP Additional Past Medical History / Comment(s): dehydration, atrial fibrillation, History of Any Multi-Drug Resistant Organisms: None Reported Past Surgical History: Heart Catheterization, Hernia Repair Additional Past Surgical History / Comment(s): cataracts Past Anesthesia/Blood Transfusion Reactions: No Reported Reaction Past Psychological History: No Psychological Hx Reported Smoking Status: Former smoker Past Alcohol Use History: None Reported Past Drug Use History: None Reported - Past Family History Father Additional Family Medical History / Comment(s): smoker, and had heart attack Mother Family Medical History: No Reported History <Kirk Dominguez P - Last Filed: 08/15/19 13:09> General Exam Limitations: no limitations General appearance: alert, in no apparent distress Head exam: Present: atraumatic, normocephalic, normal inspection Eye exam: Present: normal appearance, PERRL, EOMI. Absent: scleral icterus, conjunctival injection, periorbital swelling, periorbital tenderness, other (Negative raccoon sign) ENT exam: Present: normal exam, normal oropharynx, mucous membranes moist, TM's normal bilaterally (Negative hemotympanum), normal external ear exam. Absent: other (Negative Adams sign) Neck exam: Present: normal inspection, full ROM. Absent: tenderness, meningismus, lymphadenopathy Respiratory exam: Present: normal lung sounds bilaterally, chest wall tenderness (Patient has right lateral lower rib tenderness. There is no ecchymosis. No tenting.). Absent: respiratory distress, wheezes, rales, rhonchi, stridor Cardiovascular Exam: Present: regular rate, normal rhythm, normal heart sounds. Absent: systolic murmur, diastolic murmur, rubs, gallop, clicks GI/Abdominal exam: Present: soft, normal bowel sounds. Absent: distended, tenderness, guarding, rebound, rigid Neurological exam: Present: alert <Kirk Dominguez - Last Filed: 08/15/19 13:09> Course <Primo Rosas - Last Filed: 08/15/19 14:25> Vital Signs 08/15/19 08/15/19 11:16 13:25 Temperature 97.5 F L Pulse Rate 72 78 Respiratory 18 16 Rate Blood Pressure 124/70 128/79 O2 Sat by Pulse 99 99 Oximetry - Reevaluation(s) Reevaluation #1: 08/15/19 14:25 PA supervision: I proceeded evaluation the patient patient did fall and strike his head after going sit down and pulled erectile the wall in his bathroom this morning. No loss of consciousness no focal deficits. Imaging was performed as well as other evaluation no acute findings the patient wanted to go home and was discharged. I do agree with the assessment and plan (Primo Rosas) Medical Decision Making <Kirk Dominguez - Last Filed: 08/15/19 13:09> - Medical Decision Making X-ray of the right ribs fails to demonstrate evidence for displaced rib fracture or secondary sign of rib fracture. No evidence for pneumothorax. CT brain shows no acute intracranial process. CT cervical spine also shows no acute osseous abnormality. There are degenerative changes noted. INR is 2.4 which is within his therapeutic range. I did recommend he hold Coumadin for tonight but continue taking as scheduled tomorrow. Patient ambulatory without any difficulty. He is feeling at his baseline at this time. Patient we discharged him to follow up with primary care. He will return for any worsening symptoms. I discussed this case with attending Dr. Rosas who agrees with this assessment and treatment plan. (Kirk Dominguez) - Lab Data Lab Results 08/15/19 Range/Units 12:00 PT 23.8 H (9.0-12.0) sec INR 2.4 H (<1.2) Disposition Is patient prescribed a controlled substance at d/c from ED?: No Time of Disposition: 13:10 <Kirk Dominguez - Last Filed: 08/15/19 13:09> <Primo Rosas - Last Filed: 08/15/19 14:25> Clinical Impression: Fall, Head injury Disposition: HOME SELF-CARE Condition: Good Instructions (If sedation given, give patient instructions): Head Injury (ED) Additional Instructions: Take Tylenol for pain. Do not take Motrin. Please follow up with primary care in 1-2 days for recheck. Otherwise return to the emergency department for any worsening symptoms. Referrals: Joe Franklin MD [Primary Care Provider] - 1-2 days
--- NOTE | 2019-08-15 12:20 | CT ---
EXAMINATION TYPE: CT brain krystin niño DATE OF EXAM: 08/15/2019 COMPARISON: 08/10/2017 HISTORY: Fall CT DLP: 1306.7 mGycm, Automated exposure control for dose reduction was used. CONTRAST: Patient injected with 0 mL of Isovue 300. CT of the brain is performed utilizing 3 mm thick sections through the posterior fossa and 3 mm thick sections through the remaining calvarium. Study is performed within 24 hours of arrival to the hospital. No abnormal hyperdensity is present to suggest an acute intracranial hemorrhage. No mass lesion is evident. No acute infarcts are evident. There is some mild periventricular white matter hypodensity, most lik mercedes on the basis of chronic white matter ischemic change. Ventricles and sulci are appropriate for the patient age. Paranasal sinuses and mastoid air cells within the [id number] are clear. IMPRESSIONS: 1. Mild periventricular white matter ischemic type changes appears chronic. 2. No acute intracranial process. CT cervical spine. COMPARISON: None CT of the cervical spine is performed in the axial plane at 2 mm thick sections. Reconstructed image s in the coronal, and sagittal plane are reviewed on the computer. No acute fractures are evident. Vertebral body alignment is normal. There is loss of disc height C5-6. Anterior vertebral body spurring is present at C5-6. Minimal anter olisthesis of C6 on C7 is present. Vertebral body heights are preserved. No spinal canal stenosis is evident. Hypertrophy and uncovertebral joint hypertrophy is present on the right at C3-4 with moderate foramin al stenosis. Facet hypertrophy and uncovertebral joint hypertrophy is present on the right with mild foraminal narrowing C4-5. IMPRESSIONS: 1. No acute osseous abnormality. 2. Minimal grade 1 spondylolisthesis of C6 anteriorly on C7. 3. Degenerative disc changes greatest at C5-6. 4. Foraminal narrowing on the right at C3-4 and C4-5 due to uncovertebral joint hypertrophy and facet hypertrophy.
[2019-08-15 12:49] LABS: INR 2.4 (<1.2); Prothrombin Time 23.8 sec (9.0-12.0)
[2019-08-15 13:26] VITALS: BP 128/79; PULSE 78; RESP 16
== END 2019-08-15 13:25 | disposition home or self-care (01) ==
LOC: EC 11:13
DX: S09.90XA Unspecified injury of head, initial encounter (principal); R07.81 Pleurodynia; I48.91 Unspecified atrial fibrillation; E78.5 Hyperlipidemia, unspecified; I10 Essential (primary) hypertension; G47.30 Sleep apnea, unspecified; Z79.01 Long term (current) use of anticoagulants; Z79.899 Other long term (current) drug therapy; Z87.891 Personal history of nicotine dependence; Z95.5 Presence of coronary angioplasty implant and graft; Z98.49 Cataract extraction status, unspecified eye; Z99.89 Dependence on other enabling machines and devices; W18.12XA Fall from or off toilet with subsequent striking against object, initial encounter; Y93.89 Activity, other specified; Y92.002 Bathroom of unspecified non-institutional (private) residence as the place of occurrence of the external cause
CPT/HCPCS: 36415; 70450; 72125; 85610; 99284

== ENCOUNTER 2019-12-31 17:03 | Emergency (ER) | payer MEDICARE, OTHER ==
[2019-12-31 17:11] VITALS: RESP 18
--- NOTE | 2019-12-31 17:16 | ED ---
Chest Pain HPI - General Chief Complaint: Chest Pain Stated Complaint: Chest Pain Time Seen by Provider: 12/31/19 17:13 Source: patient, family, RN notes reviewed, old records reviewed Mode of arrival: wheelchair Limitations: no limitations - History of Present Illness Initial Comments: This is a 79 -year-old male who presents today for evaluation regards to chest pain. Patient had one onset of sudden onset right-sided chest stabbing pain. The symptoms are resolved. May nervous that she brought patient to ER. Patient has no current complaints no shortness of breath no nausea vomiting or diarrhea no diaphoresis. History of atrial fibrillation but no other history of heart disease MD Complaint: chest pain -: minutes(s) Onset: during rest Pain Location: right chest Pain Radiation: none Severity: moderate Severity scale (1-10): 4 Quality: sharp Consistency: now resolved Improves With: nothing Worsens With: nothing Context: other (None) Anginal Symptoms: other (None) Other Symptoms: other (None) Treatments Prior to Arrival: none - Related Data Home Medications Medication Instructions Recorded Confirmed Potassium Chloride ER [K-Dur 20] 40 meq PO DAILY 04/11/17 07/15/18 amLODIPine BESYLATE [Norvasc] 10 mg PO DAILY 04/11/17 07/15/18 hydroCHLOROthiazide 25 mg PO DAILY 04/11/17 07/15/18 Acetaminophen Tab [Tylenol] 325 mg PO Q8HR 07/15/18 07/15/18 Pravastatin Sodium [Pravachol] 40 mg PO HS 07/15/18 07/15/18 Warfarin [Coumadin] 1 mg PO MO 07/15/18 07/15/18 Warfarin [Coumadin] 1.5 mg PO SUTUWETHFRSA 07/15/18 07/15/18 Previous Rx's Medication Instructions Recorded atenoloL [Tenormin] 25 mg PO BID #60 tab 07/23/17 Divalproex [Depakote] 500 mg PO BID #60 tablet. 08/12/17 Allergies Allergy/AdvReac Type Severity Reaction Status Date / Time No Known Allergies Allergy Verified 12/31/19 17:11 Review of Systems ROS Statement: Those systems with pertinent positive or pertinent negative responses have been documented in the HPI. ROS Other: All systems not noted in ROS Statement are negative. EKG Findings - EKG Comments: EKG Findings:: EKG is A. fib 56 QRS 102 QTC 428 Past Medical History Past Medical History: Atrial Fibrillation, COPD, Hyperlipidemia, Hypertension, Seizure Disorder, Sleep Apnea/CPAP/BIPAP Additional Past Medical History / Comment(s): dehydration, atrial fibrillation, History of Any Multi-Drug Resistant Organisms: None Reported Past Surgical History: Heart Catheterization, Hernia Repair Additional Past Surgical History / Comment(s): cataracts Past Anesthesia/Blood Transfusion Reactions: No Reported Reaction Past Psychological History: No Psychological Hx Reported Smoking Status: Never smoker Past Alcohol Use History: None Reported Past Drug Use History: None Reported - Past Family History Father Additional Family Medical History / Comment(s): smoker, and had heart attack Mother Family Medical History: No Reported History General Exam Limitations: no limitations General appearance: alert, in no apparent distress Head exam: Present: atraumatic, normocephalic, normal inspection Eye exam: Present: normal appearance, PERRL, EOMI. Absent: scleral icterus, conjunctival injection, periorbital swelling ENT exam: Present: normal exam, mucous membranes moist Neck exam: Present: normal inspection. Absent: tenderness, meningismus, lymphadenopathy Respiratory exam: Present: normal lung sounds bilaterally. Absent: respiratory distress, wheezes, rales, rhonchi, stridor Cardiovascular Exam: Present: normal rhythm, bradycardia, normal heart sounds. Absent: systolic murmur, diastolic murmur, rubs, gallop, clicks GI/Abdominal exam: Present: soft, normal bowel sounds. Absent: distended, tenderness, guarding, rebound, rigid Extremities exam: Present: normal inspection, full ROM, normal capillary refill. Absent: tenderness, pedal edema, joint swelling, calf tenderness Back exam: Present: normal inspection Neurological exam: Present: alert, oriented X3, CN II-XII intact Psychiatric exam: Present: normal affect, normal mood Skin exam: Present: warm, dry, intact, normal color. Absent: rash Course Vital Signs 12/31/19 12/31/19 17:09 19:30 Temperature 98.2 F Pulse Rate 50 L 60 Respiratory 18 18 Rate Blood Pressure 116/67 119/84 O2 Sat by Pulse 99 98 Oximetry - Reevaluation(s) Reevaluation #1: 12/31/19 18:13 Medical records reviewed Reevaluation #2: 12/31/19 20:10 Patient has no chest pain throughout ER stay no history of significant CAD Reevaluation #3: 12/31/19 20:10 Patient informed of results, questions answered feels good with discharge Chest Pain MDM - MDM 79 male DF for evaluation of chest pain, patient right-sided stabbing chest pain for 1 minute prior to arrival no chest pain throat ER stay EKG troponin negative chest x-rays negative patient will be discharged Disposition Clinical Impression: Atypical chest pain, Chest pain Disposition: HOME SELF-CARE Condition: Good Instructions (If sedation given, give patient instructions): Chest Pain (ED) Is patient prescribed a controlled substance at d/c from ED?: No Referrals: Joe Franklin MD [Primary Care Provider] - 1-2 days
[2019-12-31 17:39] LABS: Basophils # (A) 0.1 k/uL (0-0.2); Basophils % (A) 1 %; Eosinophils # (A) 0.2 k/uL (0-0.7); Eosinophils % (A) 3 %; HCT 47.3 % (39.0-53.0); HGB 15.9 gm/dL (13.0-17.5); Lymphocytes % (A) 39 %; MCH 32.3 pg (25.0-35.0); MCHC 33.6 g/dL (31.0-37.0); MCV 96.1 fL (80.0-100.0); Mean Platelet Volume 7.4; Monocytes # (A) 0.7 k/uL (0-1.0); Monocytes % (A) 9 %; Neutrophils # (A) 3.6 k/uL (1.3-7.7); Neutrophils % (A) 46 %; Platelet Count 171 k/uL (150-450); RBC 4.93 m/uL (4.30-5.90); RDW 13.2 % (11.5-15.5); WBC 7.8 k/uL (3.8-10.6)
[2019-12-31 17:52] LABS: INR 3.4 (<1.2); Partial Thromboplastin Time 37.3 sec (22.0-30.0); Prothrombin Time 33.2 sec (9.0-12.0)
--- NOTE | 2019-12-31 17:52 | XR ---
EXAMINATION TYPE: XR chest 2V DATE OF EXAM: 12/31/2019 COMPARISON: 08/15/2019 HISTORY: Chest pain TECHNIQUE: FINDINGS: There is no heart failure nor confluent pneumonic infiltrate. There is some mild linear den sity right lung base. There are no hilar masses. There are chest leads. There is no evidence of pleur al effusion. IMPRESSION: Minimal subsegmental atelectasis right lung base unchanged. No heart failure.
[2019-12-31 17:58] LABS: ALT 16 U/L (4-49); AST 40 U/L (17-59); African American GFR (CKD) >90 (>60 ml/min/1.73 sqM); Albumin 3.9 g/dL (3.5-5.0); Alkaline Phosphatase 51 U/L (38-126); Anion Gap 10 mmol/L; Blood Urea Nitrogen 16 mg/dL (9-20); Calcium 9.1 mg/dL (8.4-10.2); Carbon Dioxide 24 mmol/L (22-30); Chloride 101 mmol/L (98-107); Glucose 126 mg/dL (74-99); Non-African American GFR(CKD) 83 (>60 ml/min/1.73 sqM); Potassium 3.6 mmol/L (3.5-5.1); Sodium 135 mmol/L (137-145); Total Bilirubin 1.5 mg/dL (0.2-1.3)
[2019-12-31 20:18] VITALS: BP 130/82; PULSE 66; TEMP 97.7
== END 2019-12-31 20:23 | disposition home or self-care (01) ==
LOC: EC 17:03
DX: R07.89 Other chest pain (principal); R00.1 Bradycardia, unspecified; I48.91 Unspecified atrial fibrillation; I10 Essential (primary) hypertension; E78.5 Hyperlipidemia, unspecified; G47.30 Sleep apnea, unspecified; Z79.899 Other long term (current) drug therapy; Z99.89 Dependence on other enabling machines and devices; Z95.5 Presence of coronary angioplasty implant and graft; Z98.42 Cataract extraction status, left eye; Z98.41 Cataract extraction status, right eye; Z79.01 Long term (current) use of anticoagulants; Z82.49 Family history of ischemic heart disease and other diseases of the circulatory system
CPT/HCPCS: 36415; 71046; 80053; 83690; 83735; 83880; 84484; 85025; 85610; 85730; 93005; 99285

== ENCOUNTER 2020-01-06 16:08 | Emergency (ER) | payer MEDICARE, OTHER ==
[2020-01-06 16:13] VITALS: TEMP 98.2
--- NOTE | 2020-01-06 16:51 | ED ---
General Adult HPI - General Chief complaint: Skin/Abscess/Foreign Body Stated complaint: finger bleed Time Seen by Provider: 01/06/20 16:17 Source: patient, family, RN notes reviewed Mode of arrival: ambulatory Limitations: no limitations - History of Present Illness Initial comments: Patient is a pleasant 79-year-old male presenting to the emergency Department with complaints of bleeding from his left middle finger. Patient did have a blister develop a couple of days ago. Patient did have some bleeding last night and there was some blood on the sheet. Patient has had some occasional bleeding since that time. Band-Aid was placed. No pain. No trauma. No lightheadedness or shortness of breath or fatigue. - Related Data Home Medications Medication Instructions Recorded Confirmed Potassium Chloride ER [K-Dur 20] 40 meq PO DAILY 04/11/17 07/15/18 amLODIPine BESYLATE [Norvasc] 10 mg PO DAILY 04/11/17 07/15/18 hydroCHLOROthiazide 25 mg PO DAILY 04/11/17 07/15/18 Acetaminophen Tab [Tylenol] 325 mg PO Q8HR 07/15/18 07/15/18 Pravastatin Sodium [Pravachol] 40 mg PO HS 07/15/18 07/15/18 Warfarin [Coumadin] 1 mg PO MO 07/15/18 07/15/18 Warfarin [Coumadin] 1.5 mg PO SUTUWETHFRSA 07/15/18 07/15/18 Previous Rx's Medication Instructions Recorded atenoloL [Tenormin] 25 mg PO BID #60 tab 07/23/17 Divalproex [Depakote] 500 mg PO BID #60 tablet. 08/12/17 Allergies Allergy/AdvReac Type Severity Reaction Status Date / Time No Known Allergies Allergy Verified 01/06/20 16:13 Review of Systems ROS Statement: Those systems with pertinent positive or pertinent negative responses have been documented in the HPI. ROS Other: All systems not noted in ROS Statement are negative. Constitutional: Denies: fever Eyes: Denies: eye pain ENT: Denies: ear pain Respiratory: Denies: cough Cardiovascular: Denies: chest pain Endocrine: Denies: fatigue Gastrointestinal: Denies: abdominal pain Genitourinary: Denies: dysuria Musculoskeletal: Denies: back pain Skin: Reports: as per HPI Past Medical History Past Medical History: Atrial Fibrillation, COPD, Hyperlipidemia, Hypertension, Seizure Disorder, Sleep Apnea/CPAP/BIPAP Additional Past Medical History / Comment(s): dehydration, atrial fibrillation, History of Any Multi-Drug Resistant Organisms: None Reported Past Surgical History: Heart Catheterization, Hernia Repair Additional Past Surgical History / Comment(s): cataracts Past Anesthesia/Blood Transfusion Reactions: No Reported Reaction Past Psychological History: No Psychological Hx Reported Smoking Status: Never smoker Past Alcohol Use History: None Reported Past Drug Use History: None Reported - Past Family History Father Additional Family Medical History / Comment(s): smoker, and had heart attack Mother Family Medical History: No Reported History General Exam Limitations: no limitations General appearance: alert, in no apparent distress Eye exam: Present: normal appearance Neck exam: Present: normal inspection Respiratory exam: Present: normal lung sounds bilaterally Cardiovascular Exam: Present: regular rate, normal rhythm Extremities exam: Absent: tenderness Neurological exam: Present: alert Psychiatric exam: Present: normal affect, normal mood Skin exam: Present: other (Left dorsal middle finger with proximal blister with underlying blood, approximate 1 cm.) Course Vital Signs 01/06/20 16:10 Temperature 98.2 F Pulse Rate 67 Respiratory 18 Rate Blood Pressure 131/86 O2 Sat by Pulse 98 Oximetry Procedures - Procedures Initial comment: Patient does have blood blister left dorsal middle finger, approximate 1 cm. Re maining blood was extracted using pressure. Finger was then wrapped using Kerlix gauze Disposition Clinical Impression: Blood blister Disposition: HOME SELF-CARE Condition: Stable Instructions (If sedation given, give patient instructions): Hematoma (ED) Additional Instructions: Please follow-up with primary care physician in the next day or 2 for recheck. Use Kerlix or gauze wrap gently daily. Please be sure not to make them wrapped too tight. Return for uncontrolled bleeding, pain, redness, worsening symptoms or other concerns. Is patient prescribed a controlled substance at d/c from ED?: No Referrals: Joe Franklin MD [Primary Care Provider] - 1-2 days Time of Disposition: 16:51
[2020-01-06 17:29] VITALS: BP 130/77; PULSE 64; RESP 16
== END 2020-01-06 17:28 | disposition home or self-care (01) ==
LOC: EC 16:08
DX: S60.423A Blister (nonthermal) of left middle finger, initial encounter (principal); I48.91 Unspecified atrial fibrillation; J44.9 Chronic obstructive pulmonary disease, unspecified; E78.5 Hyperlipidemia, unspecified; I10 Essential (primary) hypertension; G40.909 Epilepsy, unspecified, not intractable, without status epilepticus; G47.30 Sleep apnea, unspecified; Z99.89 Dependence on other enabling machines and devices; Z79.01 Long term (current) use of anticoagulants; Z79.899 Other long term (current) drug therapy; Z95.5 Presence of coronary angioplasty implant and graft; X58.XXXA Exposure to other specified factors, initial encounter
CPT/HCPCS: 99283

== ENCOUNTER 2021-01-09 01:49 | Emergency (ER) | payer MEDICARE, OTHER ==
[2021-01-09] MEDS ORDERED: DIAZEPAM 5 MG/ML 2 ML INJ IVP STA (01:56)
[2021-01-09] MEDS ORDERED: SODIUM CHLORIDE 0.9% 500 ML 500 ML IV STA (01:56)
[2021-01-09 02:02] VITALS: TEMP 97.9
--- NOTE | 2021-01-09 02:11 | ED ---
Seizure HPI - General Chief Complaint: Seizure Stated Complaint: seizure Time Seen by Provider: 01/09/21 01:55 Source: patient, EMS, RN notes reviewed, old records reviewed, Caregiver Mode of arrival: EMS Limitations: altered mental status, physical limitation - History of Present Illness Initial Comments: This is an 80-year-old male presents emergency safe for evaluation of seizure with history of seizure-like activity. EMS was called due to patient being found shaking and then not responding appropriately. On arrival to ER patient's family states patient is acting about normal, baseline. Patient himself is without complaint. MD Complaint: seizure, loss of consciousness, shaking -: hour(s) Description of Episode: loss of consciousness, tonic-clonic movement, post-event confusion -: second(s) Witnessed: yes - by bystander Trauma: Yes Seizure History: known seizure disorder Place: home Possible Precipitating Event: none Associated Symptoms: denies other symptoms Treatments Prior to Arrival: none - Related Data Home Medications Medication Instructions Recorded Confirmed Potassium Chloride ER [K-Dur 20] 40 meq PO DAILY 04/11/17 07/15/18 amLODIPine BESYLATE [Norvasc] 10 mg PO DAILY 04/11/17 07/15/18 hydroCHLOROthiazide 25 mg PO DAILY 04/11/17 07/15/18 Acetaminophen Tab [Tylenol] 325 mg PO Q8HR 07/15/18 07/15/18 Pravastatin Sodium [Pravachol] 40 mg PO HS 07/15/18 07/15/18 Warfarin [Coumadin] 1 mg PO MO 07/15/18 07/15/18 Warfarin [Coumadin] 1.5 mg PO SUTUWETHFRSA 07/15/18 07/15/18 Previous Rx's Medication Instructions Recorded atenoloL [Tenormin] 25 mg PO BID #60 tab 07/23/17 Divalproex [Depakote] 500 mg PO BID #60 tablet. 08/12/17 Allergies Allergy/AdvReac Type Severity Reaction Status Date / Time No Known Allergies Allergy Verified 01/09/21 01:58 Review of Systems ROS Statement: Those systems with pertinent positive or pertinent negative responses have been documented in the HPI. ROS Other: All systems not noted in ROS Statement are negative. Past Medical History Past Medical History: Atrial Fibrillation, COPD, Hyperlipidemia, Hypertension, Seizure Disorder, Sleep Apnea/CPAP/BIPAP Additional Past Medical History / Comment(s): dehydration, atrial fibrillation, History of Any Multi-Drug Resistant Organisms: None Reported Past Surgical History: Heart Catheterization, Hernia Repair Additional Past Surgical History / Comment(s): cataracts Past Anesthesia/Blood Transfusion Reactions: No Reported Reaction Past Psychological History: No Psychological Hx Reported Smoking Status: Never smoker Past Alcohol Use History: None Reported Past Drug Use History: None Reported - Past Family History Father Additional Family Medical History / Comment(s): smoker, and had heart attack Mother Family Medical History: No Reported History General Exam General appearance: alert, in no apparent distress Head exam: Present: atraumatic, normocephalic, normal inspection Eye exam: Present: normal appearance, PERRL, EOMI. Absent: scleral icterus, conjunctival injection, periorbital swelling ENT exam: Present: normal exam, mucous membranes moist Neck exam: Present: normal inspection. Absent: tenderness, meningismus, lymphadenopathy Respiratory exam: Present: normal lung sounds bilaterally. Absent: respiratory distress, wheezes, rales, rhonchi, stridor Cardiovascular Exam: Present: regular rate, normal rhythm, normal heart sounds. Absent: systolic murmur, diastolic murmur, rubs, gallop, clicks GI/Abdominal exam: Present: soft, normal bowel sounds. Absent: distended, tenderness, guarding, rebound, rigid Extremities exam: Present: normal inspection, full ROM, normal capillary refill. Absent: tenderness, pedal edema, joint swelling, calf tenderness Back exam: Present: normal inspection Neurological exam: Present: alert, oriented X3, CN II-XII intact Psychiatric exam: Present: normal affect, normal mood Skin exam: Present: warm, dry, intact, normal color. Absent: rash Course Vital Signs 01/09/21 01/09/21 01/09/21 01:58 02:30 03:00 Temperature 97.9 F Pulse Rate 66 53 L 56 L Respiratory 17 18 18 Rate Blood Pressure 120/72 112/82 121/80 O2 Sat by Pulse 96 96 97 Oximetry - Reevaluation(s) Reevaluation #1: 01/09/21 Medical record is reviewed Patient symptoms are improved here in the ER Patient informed of results and questions answered Patient is in no distress Patient is okay for discharge Medical Decision Making - Medical Decision Making 80 male to the emergency department for evaluation of seizure-like activity, patient has history of seizure, recurrent seizure here in the ER and can be discharged home - Lab Data Result diagrams: 01/09/21 02:09 01/09/21 02:09 Lab Results 01/09/21 01/09/21 01/09/21 Range/Units 02:09 02:09 02:09 WBC 7.6 (3.8-10.6) k/uL RBC 4.74 (4.30-5.90) m/uL Hgb 16.0 (13.0-17.5) gm/dL Hct 46.5 (39.0-53.0) % MCV 98.1 (80.0-100.0) fL MCH 33.7 (25.0-35.0) pg MCHC 34.4 (31.0-37.0) g/dL RDW 14.1 (11.5-15.5) % Plt Count 141 L (150-450) k/uL MPV 7.4 Neutrophils % 53 % Lymphocytes % 31 % Monocytes % 10 % Eosinophils % 3 % Basophils % 1 % Neutrophils # 4.1 (1.3-7.7) k/uL Lymphocytes # 2.4 (1.0-4.8) k/uL Monocytes # 0.8 (0-1.0) k/uL Eosinophils # 0.2 (0-0.7) k/uL Basophils # 0.1 (0-0.2) k/uL Sodium 132 L (137-145) mmol/L Potassium 3.3 L (3.5-5.1) mmol/L Chloride 100 (98-107) mmol/L Carbon Dioxide 21 L (22-30) mmol/L Anion Gap 11 mmol/L BUN 15 (9-20) mg/dL Creatinine 0.74 (0.66-1.25) mg/dL Est GFR (CKD-EPI)AfAm >90 (>60 ml/min/1.73 sqM) Est GFR (CKD-EPI)NonAf 87 (>60 ml/min/1.73 sqM) Glucose 113 H (74-99) mg/dL Calcium 9.1 (8.4-10.2) mg/dL Magnesium (1.6-2.3) mg/dL Total Bilirubin 0.6 (0.2-1.3) mg/dL AST 25 (17-59) U/L ALT 11 (4-49) U/L Alkaline Phosphatase 46 (38-126) U/L Total Protein 6.6 (6.3-8.2) g/dL Albumin 3.8 (3.5-5.0) g/dL Urine Color Yellow Urine Appearance Clear (Clear) Urine pH 5.5 (5.0-8.0) Ur Specific [place] 1.017 (1.001-1.035) Urine Protein 1+ H (Negative) Urine Glucose (UA) Negative (Negative) Urine Ketones Negative (Negative) Urine Blood Negative (Negative) Urine Nitrite Negative (Negative) Urine Bilirubin Negative (Negative) Urine Urobilinogen <2.0 (<2.0) mg/dL Ur Leukocyte Esterase Small H (Negative) Urine RBC 2 (0-5) /hpf Urine WBC 3 (0-5) /hpf Hyaline Casts 3 H (0-2) /lpf Urine Mucus Rare H (None) /hpf Salicylates <1.0 mg/dL Acetaminophen <10.0 ug/mL Valproic Acid ug/mL Serum Alcohol <10 mg/dL 01/09/21 01/09/21 Range/Units 02:48 02:48 WBC (3.8-10.6) k/uL RBC (4.30-5.90) m/uL Hgb (13.0-17.5) gm/dL Hct (39.0-53.0) % MCV (80.0-100.0) fL MCH (25.0-35.0) pg MCHC (31.0-37.0) g/dL RDW (11.5-15.5) % Plt Count (150-450) k/uL MPV Neutrophils % % Lymphocytes % % Monocytes % % Eosinophils % % Basophils % % Neutrophils # (1.3-7.7) k/uL Lymphocytes # (1.0-4.8) k/uL Monocytes # (0-1.0) k/uL Eosinophils # (0-0.7) k/uL Basophils # (0-0.2) k/uL Sodium (137-145) mmol/L Potassium (3.5-5.1) mmol/L Chloride (98-107) mmol/L Carbon Dioxide (22-30) mmol/L Anion Gap mmol/L BUN (9-20) mg/dL Creatinine (0.66-1.25) mg/dL Est GFR (CKD-EPI)AfAm (>60 ml/min/1.73 sqM) Est GFR (CKD-EPI)NonAf (>60 ml/min/1.73 sqM) Glucose (74-99) mg/dL Calcium (8.4-10.2) mg/dL Magnesium 1.8 (1.6-2.3) mg/dL Total Bilirubin (0.2-1.3) mg/dL AST (17-59) U/L ALT (4-49) U/L Alkaline Phosphatase (38-126) U/L Total Protein (6.3-8.2) g/dL Albumin (3.5-5.0) g/dL Urine Color Urine Appearance (Clear) Urine pH (5.0-8.0) Ur Specific [place] (1.001-1.035) Urine Protein (Negative) Urine Glucose (UA) (Negative) Urine Ketones (Negative) Urine Blood (Negative) Urine Nitrite (Negative) Urine Bilirubin (Negative) Urine Urobilinogen (<2.0) mg/dL Ur Leukocyte Esterase (Negative) Urine RBC (0-5) /hpf Urine WBC (0-5) /hpf Hyaline Casts (0-2) /lpf Urine Mucus (None) /hpf Salicylates mg/dL Acetaminophen ug/mL Valproic Acid 80.6 ug/mL Serum Alcohol mg/dL - EKG Data -: EKG Interpreted by Me (EKG is A. fib 65 QRS 90 QTC 438) Disposition Clinical Impression: Generalized seizure, Epileptic seizure, generalized Disposition: HOME SELF-CARE Condition: Good Instructions (If sedation given, give patient instructions): Seizure/Epilepsy Discharge Instructions & Follow-Up, Recurrent Seizures in Adults (ED) Is patient prescribed a controlled substance at d/c from ED?: No Referrals: Joe Franklin MD [Primary Care Provider] - 1-2 days
[2021-01-09 02:24] LABS: Basophils # (A) 0.1 k/uL (0-0.2); Basophils % (A) 1 %; Eosinophils # (A) 0.2 k/uL (0-0.7); Eosinophils % (A) 3 %; HCT 46.5 % (39.0-53.0); Lymphocytes # (A) 2.4 k/uL (1.0-4.8); Lymphocytes % (A) 31 %; MCH 33.7 pg (25.0-35.0); MCHC 34.4 g/dL (31.0-37.0); MCV 98.1 fL (80.0-100.0); Mean Platelet Volume 7.4; Monocytes # (A) 0.8 k/uL (0-1.0); Monocytes % (A) 10 %; Neutrophils # (A) 4.1 k/uL (1.3-7.7); Neutrophils % (A) 53 %; Platelet Count 141 k/uL (150-450); RBC 4.74 m/uL (4.30-5.90); RDW 14.1 % (11.5-15.5); WBC 7.6 k/uL (3.8-10.6)
[2021-01-09 02:45] LABS: ALT 11 U/L (4-49); AST 25 U/L (17-59); Acetaminophen <10.0 ug/mL; African American GFR (CKD) >90 (>60 ml/min/1.73 sqM); Albumin 3.8 g/dL (3.5-5.0); Alcohol <10 mg/dL; Alkaline Phosphatase 46 U/L (38-126); Anion Gap 11 mmol/L; Blood Urea Nitrogen 15 mg/dL (9-20); Calcium 9.1 mg/dL (8.4-10.2); Carbon Dioxide 21 mmol/L (22-30); Chloride 100 mmol/L (98-107); Glucose 113 mg/dL (74-99); Non-African American GFR(CKD) 87 (>60 ml/min/1.73 sqM); Potassium 3.3 mmol/L (3.5-5.1); Salicylate <1.0 mg/dL; Sodium 132 mmol/L (137-145); Total Bilirubin 0.6 mg/dL (0.2-1.3); Total Protein 6.6 g/dL (6.3-8.2)
[2021-01-09] MEDS ORDERED: POTASSIUM BICARBONATE/CIT AC 20 MEQ TABLET.EFF PO ONE (03:15)
[2021-01-09 03:25] LABS: Appearance,Urine Clear (Clear); Bilirubin,Urine Negative (Negative); Blood,Urine Negative (Negative); Color,Urine Yellow; Glucose,Urine (UA) Negative (Negative); Hyaline Casts,Urine 3 /lpf (0-2); Ketones,Urine Negative (Negative); Leukocyte Esterase,Urine Small (Negative); Mucus,Urine Rare /hpf; Nitrite,Urine Negative (Negative); PH, Urine 5.5 (5.0-8.0); Protein,Urine 1+ (Negative); RBC,Urine 2 /hpf (0-5); Specific Gravity,Urine 1.017 (1.001-1.035); Urobilinogen,Urine <2.0 mg/dL (<2.0); WBC,Urine 3 /hpf (0-5)
[2021-01-09 04:26] VITALS: BP 121/80; PULSE 56; RESP 18
== END 2021-01-09 03:50 | disposition home or self-care (01) ==
LOC: EC 01:49
DX: G40.409 Other generalized epilepsy and epileptic syndromes, not intractable, without status epilepticus (principal); I48.91 Unspecified atrial fibrillation; J44.9 Chronic obstructive pulmonary disease, unspecified; E78.5 Hyperlipidemia, unspecified; I10 Essential (primary) hypertension; Z79.01 Long term (current) use of anticoagulants
CPT/HCPCS: 99285; 36415; 93005; 80164; 80053; 83735; 85025; 81001; 80143; 80179; G0480; 80320

== ENCOUNTER 2021-08-26 04:47 | Emergency (ER) | payer MEDICARE, OTHER ==
[2021-08-26] MEDS ORDERED: ORPHENADRINE 30 MG/ML 2 ML VIAL IM STA (06:09)
[2021-08-26] MEDS ORDERED: KETOROLAC 15 MG/ML 1 ML VIAL IM STA (06:09)
--- NOTE | 2021-08-26 06:18 | ED ---
Back Pain HPI - General Chief Complaint: Back Pain/Injury Stated Complaint: Back pain Time Seen by Provider: 08/26/21 05:55 Source: patient, family, RN notes reviewed, old records reviewed Mode of arrival: EMS Limitations: no limitations - History of Present Illness Initial Comments: Patient is an 81-year-old male with history of A. fib, COPD, hypertension, presenting to the emergency department via EMS with complaints of left-sided back pain started yesterday. States his first noticed around 2 PM yesterday when he was attempting to get up from a seated position. He states he instantly had left lower back discomfort and tightness. He tried to take some Tylenol yesterday and today without any relief. The pain is worse with movement or with walking. He states when he is laying down or sitting he feels improvement. The act of getting up from a seated position is worse. He denies any numbness and tingling into his extremities, no loss of bowel or bladder control. The patient's states that he sat down on the bed this morning attempted to lay back and rolled over and he had extreme amount of pain which she has never heard before. So they called EMS for evaluation. He denies a history of kidney stones. Denies history of lumbar surgeries or fractures. He denies any hematuria. No fevers or chills. Denies chest pain or shortness of breath. Denies any recent cough or cold-like symptoms. He has no further complaints. - Related Data Home Medications Medication Instructions Recorded Confirmed Potassium Chloride ER [K-Dur 20] 40 meq PO DAILY 04/11/17 07/15/18 amLODIPine BESYLATE [Norvasc] 10 mg PO DAILY 04/11/17 07/15/18 hydroCHLOROthiazide 25 mg PO DAILY 04/11/17 07/15/18 Acetaminophen Tab [Tylenol] 325 mg PO Q8HR 07/15/18 07/15/18 Pravastatin Sodium [Pravachol] 40 mg PO HS 07/15/18 07/15/18 Warfarin [Coumadin] 1 mg PO MO 07/15/18 07/15/18 Warfarin [Coumadin] 1.5 mg PO SUTUWETHFRSA 07/15/18 07/15/18 Previous Rx's Medication Instructions Recorded atenoloL [Tenormin] 25 mg PO BID #60 tab 03/09/18 Divalproex [Depakote] 500 mg PO BID #60 tablet. 08/12/17 Cephalexin [Keflex] 500 mg PO Q6HR 7 Days #28 cap 08/26/21 Cyclobenzaprine [Flexeril] 5 mg PO BID #10 tablet 08/26/21 Allergies Allergy/AdvReac Type Severity Reaction Status Date / Time No Known Allergies Allergy Verified 08/26/21 04:57 Review of Systems ROS Statement: Those systems with pertinent positive or pertinent negative responses have been documented in the HPI. ROS Other: All systems not noted in ROS Statement are negative. Past Medical History Past Medical History: Atrial Fibrillation, COPD, Hyperlipidemia, Hypertension, Seizure Disorder, Sleep Apnea/CPAP/BIPAP Additional Past Medical History / Comment(s): dehydration, atrial fibrillation, History of Any Multi-Drug Resistant Organisms: None Reported Past Surgical History: Heart Catheterization, Hernia Repair Additional Past Surgical History / Comment(s): cataracts Past Anesthesia/Blood Transfusion Reactions: No Reported Reaction Past Psychological History: No Psychological Hx Reported Smoking Status: Never smoker Past Alcohol Use History: None Reported Past Drug Use History: None Reported - Past Family History Father Additional Family Medical History / Comment(s): smoker, and had heart attack Mother Family Medical History: No Reported History General Exam - General Exam Comments Initial Comments: GENERAL: Patient is well-developed and well-nourished. Patient is nontoxic and in no acute distress. HEAD: Atraumatic, normocephalic. EYES: Pupils equal round and reactive to light, extraocular movements intact, sclera anicteric, conjunctiva are normal. Eyelids were unremarkable. ENT: Nares patent, oropharynx clear without exudates. Moist mucous membranes. NECK: Normal range of motion, supple without lymphadenopathy or JVD. LUNGS: Unlabored respirations. Breath sounds clear to auscultation bilaterally and equal. No wheezes rales or rhonchi. HEART: Regular rate and rhythm without murmurs, rubs or gallops. ABDOMEN: Soft, nontender, normoactive bowel sounds. No guarding, no rebound. No masses appreciated. : Deferred MUSCULOSKELETAL: Patient has very mild discomfort noted of the left lumbar paraspinals. He has full active range of motion of bilateral hips without pain to the back. Patient has pain with trunk rotation and a laying position. He is neurovascularly intact, sensation equal in bilateral lower extremities. NEUROLOGICAL: Patient is alert and oriented x 3. Motor and sensory are also intact. Cranial nerves II through XII grossly intact. Symmetrical smile. Normal speech, normal gait. PSYCH: Normal mood, normal affect. SKIN: Warm, Dry, normal turgor, no rashes or lesions noted. Limitations: no limitations Course Vital Signs 08/26/21 08/26/21 04:49 08:08 Temperature 96.9 F L 97.5 F L Pulse Rate 62 70 Respiratory 18 16 Rate Blood Pressure 131/85 124/78 O2 Sat by Pulse 97 98 Oximetry Medical Decision Making - Medical Decision Making Patient is an 81-year-old male here via EMS with complaints of left-sided low back pain that started yesterday around 2 PM. No falls or trauma. He was trying to get up from a seated position. No history of lumbar surgeries or fractures, no acute neuro deficits, no signs of cauda equina. X-rays of the lumbar regions show degenerative changes, no acute process, KUB showing no acute process. Patient is feeling improvement after Norflex and Toradol. Urinalysis shows positive nitrate, WBC and WBC clumps and bacteria. Urine culture is pending. Patient be given 1 g of Rocephin and started on Keflex. He is agreeable with this plan of care. He will follow up with his primary care. Return parameters were discussed. - Lab Data Lab Results 08/26/21 Range/Units 08:10 Urine Color Yellow Urine Appearance Turbid (Clear) Urine pH 6.0 (5.0-8.0) Ur Specific [place] 1.021 (1.001-1.035) Urine Protein 2+ H (Negative) Urine Glucose (UA) Negative (Negative) Urine Ketones Trace H (Negative) Urine Blood Moderate H (Negative) Urine Nitrite Positive (Negative) Urine Bilirubin Negative (Negative) Urine Urobilinogen <2.0 (<2.0) mg/dL Ur Leukocyte Esterase Large H (Negative) Urine RBC 42 H (0-5) /hpf Urine WBC >182 H (0-5) /hpf Urine WBC Clumps Many H (None) /hpf Ur Squamous Epith Cells 2 (0-4) /hpf Urine Bacteria Few H (None) /hpf Urine Mucus Moderate H (None) /hpf Urine Yeast (Budding) Few H (None) /hpf Disposition Clinical Impression: Strain of lumbar region, UTI (urinary tract infection) Disposition: HOME SELF-CARE Condition: Stable Instructions (If sedation given, give patient instructions): Acute Low Back Pain (ED), Urinary Tract Infection in Men (ED) Additional Instructions: Please return to the Emergency Department if symptoms worsen or any other concerns. Recommend Tylenol and ibuprofen for pain. Trial of muscle relaxer at night. They also apply ice and/or heat to the area. Take antibiotic as prescribed, finish entire course. Follow-up with your primary care. Prescriptions: Cyclobenzaprine [Flexeril] 5 mg PO BID #10 tablet Cephalexin [Keflex] 500 mg PO Q6HR 7 Days #28 cap Is patient prescribed a controlled substance at d/c from ED?: No Referrals: Joe Franklin MD [Primary Care Provider] - 1-2 days Time of Disposition: 08:41
--- NOTE | 2021-08-26 07:41 | XR ---
EXAMINATION TYPE: XR KUB DATE OF EXAM: 08/26/2021 6:43 AM CLINICAL HISTORY: Left low back and flank pain. TECHNIQUE: Two Upright KUB images of the abdomen are obtained. COMPARISON: None. FINDINGS: Scattered gas is seen in non-distended small and large bowel loops. Multilevel spurring in the spine. Lung bases are clear. No suspicious calcifications. IMPRESSION: Overall nonobstructive bowel gas pattern. No definite nephrolithiasis.
--- NOTE | 2021-08-26 07:41 | XR ---
EXAMINATION TYPE: XR lumbar spine 2 or 3V DATE OF EXAM: 08/26/2021 CLINICAL HISTORY: Left low back and flank pain. TECHNIQUE: Frontal and lateral images of the lumbar spine are obtained. COMPARISON: None FINDINGS: There are 5 lumbar type vertebral bodies identified. The lumbar spine shows slight scolio tic curvature on the frontal images and straightening on the lateral images. Vertebral body heights a re within normal limits. Multilevel disc space narrowing that is moderate to advanced L3-L4 through t he L5-S1 levels. Multilevel moderate to advanced anterior and lateral spurring. Multilevel spinous pr ocess hypertrophy and facet arthropathy. Moderate to advanced overlying arterial calcification is pre sent. IMPRESSION: As above.
[2021-08-26 08:10] VITALS: RESP 16
[2021-08-26 08:27] LABS: Appearance,Urine Turbid (Clear); Bacteria,Urine Few /hpf; Bilirubin,Urine Negative (Negative); Blood,Urine Moderate (Negative); Budding Yeast,Urine Few /hpf; Color,Urine Yellow; Glucose,Urine (UA) Negative (Negative); Ketones,Urine Trace (Negative); Leukocyte Esterase,Urine Large (Negative); Mucus,Urine Moderate /hpf; Nitrite,Urine Positive (Negative); Protein,Urine 2+ (Negative); RBC,Urine 42 /hpf (0-5); Specific Gravity,Urine 1.021 (1.001-1.035); Squamous Epithelial Cell,Urine 2 /hpf (0-4); Urobilinogen,Urine <2.0 mg/dL (<2.0); WBC,Urine >182 /hpf (0-5)
[2021-08-26] MEDS ORDERED: cefTRIAXone 1,000 MG VIAL (IM USE) IM STA (08:36)
[2021-08-26 09:01] VITALS: BP 137/74; PULSE 81; TEMP 97.6
== END 2021-08-26 09:00 | disposition home or self-care (01) ==
LOC: EC 04:47
DX: S39.012A Strain of muscle, fascia and tendon of lower back, initial encounter (principal); N39.0 Urinary tract infection, site not specified; I48.91 Unspecified atrial fibrillation; J44.9 Chronic obstructive pulmonary disease, unspecified; E78.5 Hyperlipidemia, unspecified; I10 Essential (primary) hypertension; G40.909 Epilepsy, unspecified, not intractable, without status epilepticus; Z79.01 Long term (current) use of anticoagulants; X50.0XXA Overexertion from strenuous movement or load, initial encounter
CPT/HCPCS: 99284; 96372 ×3; 81001; 87086; 72100; 74018; J2360; J0696; J1885

== ENCOUNTER 2021-10-27 00:23 | Emergency (ER) | payer MEDICARE, OTHER ==
[2021-10-27] MEDS ORDERED: SODIUM CHLORIDE 0.9% 500 ML 500 ML IV STA ×2 (00:27→01:54)
--- NOTE | 2021-10-27 00:29 | ED ---
Seizure HPI - General Stated Complaint: Seizure Time Seen by Provider: 10/27/21 00:27 Source: RN notes reviewed, old records reviewed, Caregiver Mode of arrival: EMS Limitations: altered mental status - History of Present Illness Initial Comments: This is an 81-year-old male to the emergency department for evaluation patient presents today for evaluation regards to seizure seizure with history of seizures visits patient same seizure he has been taking his medications as presc ribed. No other complaints patient was postictal on arrival but throughout evaluation is improving. is at bedside providing history. MD Complaint: seizure -: minutes(s) Description of Episode: loss of consciousness, tonic-clonic movement -: second(s) Witnessed: yes - by bystander Trauma: No Seizure History: known seizure disorder Place: home Possible Precipitating Event: none Associated Symptoms: confusion Treatments Prior to Arrival: none - Related Data Home Medications Medication Instructions Recorded Confirmed Potassium Chloride ER [K-Dur 20] 40 meq PO DAILY 04/11/17 07/15/18 amLODIPine BESYLATE [Norvasc] 10 mg PO DAILY 04/11/17 07/15/18 hydroCHLOROthiazide 25 mg PO DAILY 04/11/17 07/15/18 Acetaminophen Tab [Tylenol] 325 mg PO Q8HR 07/15/18 07/15/18 Pravastatin Sodium [Pravachol] 40 mg PO HS 07/15/18 07/15/18 Warfarin [Coumadin] 1 mg PO MO 07/15/18 07/15/18 Warfarin [Coumadin] 1.5 mg PO SUTUWETHFRSA 07/15/18 07/15/18 Previous Rx's Medication Instructions Recorded atenoloL [Tenormin] 25 mg PO BID #60 tab 07/23/17 Divalproex [Depakote] 500 mg PO BID #60 tablet. 08/12/17 Cephalexin [Keflex] 500 mg PO Q6HR 7 Days #28 cap 08/26/21 Cyclobenzaprine [Flexeril] 5 mg PO BID #10 tablet 08/26/21 Allergies Allergy/AdvReac Type Severity Reaction Status Date / Time No Known Allergies Allergy Verified 10/27/21 00:35 Review of Systems ROS Statement: Those systems with pertinent positive or pertinent negative responses have been documented in the HPI. ROS Other: All systems not noted in ROS Statement are negative. Past Medical History Past Medical History: Atrial Fibrillation, COPD, Hyperlipidemia, Hypertension, Seizure Disorder, Sleep Apnea/CPAP/BIPAP Additional Past Medical History / Comment(s): dehydration, atrial fibrillation, History of Any Multi-Drug Resistant Organisms: None Reported Past Surgical History: Heart Catheterization, Hernia Repair Additional Past Surgical History / Comment(s): cataracts Past Anesthesia/Blood Transfusion Reactions: No Reported Reaction Past Psychological History: No Psychological Hx Reported Smoking Status: Never smoker Past Alcohol Use History: None Reported Past Drug Use History: None Reported - Past Family History Father Additional Family Medical History / Comment(s): smoker, and had heart attack Mother Family Medical History: No Reported History General Exam General appearance: alert, in no apparent distress Head exam: Present: atraumatic, normocephalic, normal inspection Eye exam: Present: normal appearance, PERRL, EOMI. Absent: scleral icterus, conjunctival injection, periorbital swelling ENT exam: Present: normal exam, mucous membranes moist Neck exam: Present: normal inspection. Absent: tenderness, meningismus, lymphadenopathy Respiratory exam: Present: normal lung sounds bilaterally. Absent: respiratory distress, wheezes, rales, rhonchi, stridor Cardiovascular Exam: Present: regular rate, normal rhythm, normal heart sounds. Absent: systolic murmur, diastolic murmur, rubs, gallop, clicks GI/Abdominal exam: Present: soft, normal bowel sounds. Absent: distended, tende rness, guarding, rebound, rigid Extremities exam: Present: normal inspection, full ROM, normal capillary refill. Absent: tenderness, pedal edema, joint swelling, calf tenderness Back exam: Present: normal inspection Neurological exam: Present: alert, oriented X3, CN II-XII intact Psychiatric exam: Present: normal affect, normal mood Skin exam: Present: warm, dry, intact, normal color. Absent: rash Course Vital Signs 10/27/21 10/27/21 10/27/21 00:25 02:57 03:08 Temperature 98.4 F 98.4 F Pulse Rate 50 L 66 66 Respiratory 18 18 18 Rate Blood Pressure 123/69 136/74 136/74 O2 Sat by Pulse 94 L 96 96 Oximetry - Reevaluation(s) Reevaluation #1: 10/27/21 Medical record is reviewed Reevaluation #2: 10/27/21 No recurrent seizures here in the ER Reevaluation #3: 10/27/21 Patient informed results and questions answered Medical Decision Making - Medical Decision Making 81 male to the emergency room, for evaluation of seizure recurrent seizure recur rent seizure here in the ER. Patient found of results questions answered, okay for discharge - Lab Data Result diagrams: 10/27/21 00:39 10/27/21 00:39 Lab Results 10/27/21 10/27/21 10/27/21 Range/Units 00:39 00:39 00:39 WBC 7.7 (3.8-10.6) k/uL RBC 4.46 (4.30-5.90) m/uL Hgb 14.5 (13.0-17.5) gm/dL Hct 43.7 (39.0-53.0) % MCV 97.9 (80.0-100.0) fL MCH 32.5 (25.0-35.0) pg MCHC 33.2 (31.0-37.0) g/dL RDW 13.6 (11.5-15.5) % Plt Count 154 (150-450) k/uL MPV 7.5 Neutrophils % 59 % Lymphocytes % 27 % Monocytes % 8 % Eosinophils % 3 % Basophils % 1 % Neutrophils # 4.6 (1.3-7.7) k/uL Lymphocytes # 2.1 (1.0-4.8) k/uL Monocytes # 0.6 (0-1.0) k/uL Eosinophils # 0.2 (0-0.7) k/uL Basophils # 0.0 (0-0.2) k/uL Sodium 130 L (137-145) mmol/L Potassium 3.9 (3.5-5.1) mmol/L Chloride 98 (98-107) mmol/L Carbon Dioxide 23 (22-30) mmol/L Anion Gap 9 mmol/L BUN 14 (9-20) mg/dL Creatinine 0.89 (0.66-1.25) mg/dL Est GFR (CKD-EPI)AfAm >90 (>60 ml/min/1.73 sqM) Est GFR (CKD-EPI)NonAf 80 (>60 ml/min/1.73 sqM) Glucose 104 H (74-99) mg/dL Calcium 8.8 (8.4-10.2) mg/dL Magnesium 1.8 (1.6-2.3) mg/dL Total Bilirubin 0.6 (0.2-1.3) mg/dL AST 20 (17-59) U/L ALT 9 (4-49) U/L Alkaline Phosphatase 47 (38-126) U/L Total Protein 6.6 (6.3-8.2) g/dL Albumin 3.8 (3.5-5.0) g/dL Urine Color Yellow Urine Appearance Cloudy (Clear) Urine pH 6.5 (5.0-8.0) Ur Specific [place] 1.015 (1.001-1.035) Urine Protein Trace H (Negative) Urine Glucose (UA) Negative (Negative) Urine Ketones Negative (Negative) Urine Blood Trace H (Negative) Urine Nitrite Negative (Negative) Urine Bilirubin Negative (Negative) Urine Urobilinogen <2.0 (<2.0) mg/dL Ur Leukocyte Esterase Large H (Negative) Urine RBC 16 H (0-5) /hpf Urine WBC >182 H (0-5) /hpf Urine WBC Clumps Many H (None) /hpf Ur Squamous Epith Cells 6 H (0-4) /hpf Urine Bacteria Occasional H (None) /hpf Urine Mucus Rare H (None) /hpf Salicylates <1.0 mg/dL Urine Opiates Screen Not Detected (NotDetected) Ur Oxycodone Screen Not Detected (NotDetected) Urine Methadone Screen Not Detected (NotDetected) Ur Propoxyphene Screen Not Detected (NotDetected) Acetaminophen <10.0 ug/mL Ur Barbiturates Screen Not Detected (NotDetected) Valproic Acid 85.3 ug/mL U Tricyclic Antidepress Not Detected (NotDetected) Ur Phencyclidine Scrn Not Detected (NotDetected) Ur Amphetamines Screen Not Detected (NotDetected) U Methamphetamines Scrn Not Detected (NotDetected) U Benzodiazepines Scrn Not Detected (NotDetected) Urine Cocaine Screen Not Detected (NotDetected) U Marijuana (THC) Screen Not Detected (NotDetected) - EKG Data -: EKG Interpreted by Me (EKG shows atrial fibrillation 56 QRS 98 QTc 416) Disposition Clinical Impression: Seizure, Epileptic seizure, generalized Disposition: HOME SELF-CARE Condition: Good Instructions (If sedation given, give patient instructions): Seizure/Epilepsy Discharge Instructions & Follow-Up, Recurrent Seizures in Adults (ED) Is patient prescribed a controlled substance at d/c from ED?: No Referrals: Joe Franklin MD [Primary Care Provider] - 1-2 days Time of Disposition: 02:10
[2021-10-27 00:35] VITALS: RESP 18; TEMP 98.4
[2021-10-27 01:16] LABS: Basophils % (A) 1 %; Eosinophils # (A) 0.2 k/uL (0-0.7); Eosinophils % (A) 3 %; HCT 43.7 % (39.0-53.0); HGB 14.5 gm/dL (13.0-17.5); Lymphocytes # (A) 2.1 k/uL (1.0-4.8); Lymphocytes % (A) 27 %; MCH 32.5 pg (25.0-35.0); MCHC 33.2 g/dL (31.0-37.0); MCV 97.9 fL (80.0-100.0); Mean Platelet Volume 7.5; Monocytes # (A) 0.6 k/uL (0-1.0); Monocytes % (A) 8 %; Neutrophils # (A) 4.6 k/uL (1.3-7.7); Neutrophils % (A) 59 %; Platelet Count 154 k/uL (150-450); RBC 4.46 m/uL (4.30-5.90); RDW 13.6 % (11.5-15.5); WBC 7.7 k/uL (3.8-10.6)
[2021-10-27 01:27] LABS: ALT 9 U/L (4-49); AST 20 U/L (17-59); Acetaminophen <10.0 ug/mL; African American GFR (CKD) >90 (>60 ml/min/1.73 sqM); Albumin 3.8 g/dL (3.5-5.0); Alkaline Phosphatase 47 U/L (38-126); Anion Gap 9 mmol/L; Blood Urea Nitrogen 14 mg/dL (9-20); Calcium 8.8 mg/dL (8.4-10.2); Carbon Dioxide 23 mmol/L (22-30); Chloride 98 mmol/L (98-107); Glucose 104 mg/dL (74-99); Magnesium 1.8 mg/dL (1.6-2.3); Non-African American GFR(CKD) 80 (>60 ml/min/1.73 sqM); Potassium 3.9 mmol/L (3.5-5.1); Salicylate <1.0 mg/dL; Sodium 130 mmol/L (137-145); Total Bilirubin 0.6 mg/dL (0.2-1.3); Total Protein 6.6 g/dL (6.3-8.2)
[2021-10-27 01:32] LABS: Valproic Acid (Depakene) 85.3 ug/mL
[2021-10-27 01:56] LABS: Appearance,Urine Cloudy (Clear); Bacteria,Urine Occasional /hpf; Bilirubin,Urine Negative (Negative); Blood,Urine Trace (Negative); Color,Urine Yellow; Glucose,Urine (UA) Negative (Negative); Ketones,Urine Negative (Negative); Leukocyte Esterase,Urine Large (Negative); Mucus,Urine Rare /hpf; Nitrite,Urine Negative (Negative); PH, Urine 6.5 (5.0-8.0); Protein,Urine Trace (Negative); RBC,Urine 16 /hpf (0-5); Specific Gravity,Urine 1.015 (1.001-1.035); Squamous Epithelial Cell,Urine 6 /hpf (0-4); Urobilinogen,Urine <2.0 mg/dL (<2.0); WBC,Urine >182 /hpf (0-5)
[2021-10-27 01:58] LABS: Amphetamine Screen,Urine Not Detected (NotDetected); Barbiturate Screen,Urine Not Detected (NotDetected); Benzodiazepines Screen,Urine Not Detected (NotDetected); Cocaine Screen,Urine Not Detected (NotDetected); Methadone Screen, Urine Not Detected (NotDetected); Opiate Screen,Urine Not Detected (NotDetected); Oxycodone Screen, Urine Not Detected (NotDetected); Phencyclidine Screen,Urine Not Detected (NotDetected); Tricyclic Antidepressant,Urine Not Detected (NotDetected); Urn Cannabinoid Scrn Not Detected (NotDetected)
[2021-10-27 02:58] VITALS: BP 136/74; PULSE 66
== END 2021-10-27 03:09 | disposition home or self-care (01) ==
LOC: EC 00:23
DX: G40.409 Other generalized epilepsy and epileptic syndromes, not intractable, without status epilepticus (principal); J44.9 Chronic obstructive pulmonary disease, unspecified; I10 Essential (primary) hypertension; E78.5 Hyperlipidemia, unspecified
CPT/HCPCS: 36415; 80053; 80143; 80164; 80179; 80306; 81001; 83735; 85025; 87086; 93005; 96360; 96361; 99285

== ENCOUNTER 2022-03-24 06:33 | Emergency (ER) | payer MEDICARE, OTHER ==
[2022-03-24 06:47] VITALS: TEMP 98.6
[2022-03-24 06:58] LABS: Basophils % (A) 0 %; Eosinophils # (A) 0.3 k/uL (0-0.7); Eosinophils % (A) 4 %; HCT 42.6 % (39.0-53.0); HGB 14.6 gm/dL (13.0-17.5); Lymphocytes # (A) 2.9 k/uL (1.0-4.8); Lymphocytes % (A) 37 %; MCH 31.6 pg (25.0-35.0); MCHC 34.2 g/dL (31.0-37.0); MCV 92.5 fL (80.0-100.0); Mean Platelet Volume 8.4; Monocytes # (A) 0.7 k/uL (0-1.0); Monocytes % (A) 9 %; Neutrophils # (A) 3.8 k/uL (1.3-7.7); Neutrophils % (A) 48 %; Platelet Count 151 k/uL (150-450); RDW 13.4 % (11.5-15.5); WBC 7.9 k/uL (3.8-10.6)
[2022-03-24 07:09] LABS: INR 1.7 (<1.2); Partial Thromboplastin Time 31.7 sec (22.0-30.0); Prothrombin Time 17.5 sec (9.0-12.0)
[2022-03-24 07:13] LABS: ALT 14 U/L (4-49); AST 51 U/L (17-59); African American GFR (CKD) >90 (>60 ml/min/1.73 sqM); Albumin 4.1 g/dL (3.5-5.0); Alkaline Phosphatase 45 U/L (38-126); Anion Gap 7 mmol/L; Blood Urea Nitrogen 13 mg/dL (9-20); Calcium 8.4 mg/dL (8.4-10.2); Carbon Dioxide 26 mmol/L (22-30); Chloride 102 mmol/L (98-107); Glucose 86 mg/dL (74-99); Magnesium 1.6 mg/dL (1.6-2.3); Non-African American GFR(CKD) 87 (>60 ml/min/1.73 sqM); Sodium 135 mmol/L (137-145); Total Bilirubin 1.4 mg/dL (0.2-1.3); Total Protein 7.1 g/dL (6.3-8.2)
[2022-03-24 07:26] LABS: Potassium 4.7 mmol/L (3.5-5.1)
--- NOTE | 2022-03-24 08:03 | ED ---
General Adult HPI - General Stated complaint: Seizure Time Seen by Provider: 03/24/22 06:36 Source: patient, EMS, RN notes reviewed Mode of arrival: EMS Limitations: no limitations - History of Present Illness Initial comments: 81-year-old male presents emergency Department with chief complaint of a seizure. Patient has recurrent seizures does see Dr. Saleem. Patient brought in via EMS. Patient has no complaints at this time denies having headache dizziness or neck pain abdominal pain. This was witnessed seizure by and patient is has normal baseline. Patient is on Coumadin and no head injury he was in bed when this happened. Patient denies any extremity weakness no facial paresthesias no other associated symptoms. - Related Data Home Medications Medication Instructions Recorded Confirmed Potassium Chloride ER [K-Dur 20] 40 meq PO DAILY 04/11/17 07/15/18 amLODIPine BESYLATE [Norvasc] 10 mg PO DAILY 04/11/17 07/15/18 hydroCHLOROthiazide 25 mg PO DAILY 04/11/17 07/15/18 Acetaminophen Tab [Tylenol] 325 mg PO Q8HR 07/15/18 07/15/18 Pravastatin Sodium [Pravachol] 40 mg PO HS 07/15/18 07/15/18 Warfarin [Coumadin] 1 mg PO MO 07/15/18 07/15/18 Warfarin [Coumadin] 1.5 mg PO SUTUWETHFRSA 07/15/18 07/15/18 Previous Rx's Medication Instructions Recorded atenoloL [Tenormin] 25 mg PO BID #60 tab 07/23/17 Divalproex [Depakote] 500 mg PO BID #60 tablet. 08/12/17 Cephalexin [Keflex] 500 mg PO Q6HR 7 Days #28 cap 08/26/21 Cyclobenzaprine [Flexeril] 5 mg PO BID #10 tablet 08/26/21 Allergies Allergy/AdvReac Type Severity Reaction Status Date / Time No Known Allergies Allergy Verified 10/27/21 00:35 Review of Systems ROS Statement: Those systems with pertinent positive or pertinent negative responses have been documented in the HPI. ROS Other: All systems not noted in ROS Statement are negative. Past Medical History Past Medical History: Atrial Fibrillation, COPD, Hyperlipidemia, Hypertension, Seizure Disorder, Sleep Apnea/CPAP/BIPAP Additional Past Medical History / Comment(s): dehydration, atrial fibrillation, History of Any Multi-Drug Resistant Organisms: None Reported Past Surgical History: Heart Catheterization, Hernia Repair Additional Past Surgical History / Comment(s): cataracts Past Anesthesia/Blood Transfusion Reactions: No Reported Reaction Past Psychological History: No Psychological Hx Reported Smoking Status: Never smoker Past Alcohol Use History: None Reported Past Drug Use History: None Reported - Past Family History Father Additional Family Medical History / Comment(s): smoker, and had heart attack Mother Family Medical History: No Reported History General Exam Limitations: no limitations General appearance: alert, in no apparent distress Head exam: Present: atraumatic, normocephalic, normal inspection Eye exam: Present: normal appearance, PERRL, EOMI. Absent: scleral icterus, conjunctival injection, periorbital swelling ENT exam: Present: normal exam, normal oropharynx, mucous membranes moist Neck exam: Present: normal inspection, full ROM. Absent: tenderness, meningismus, lymphadenopathy Respiratory exam: Present: normal lung sounds bilaterally. Absent: respiratory distress, wheezes, rales, rhonchi, stridor Cardiovascular Exam: Present: regular rate, normal rhythm, normal heart sounds. Absent: systolic murmur, diastolic murmur, rubs, gallop, clicks Neurological exam: Present: alert, oriented X3, CN II-XII intact, reflexes normal. Absent: motor sensory deficit Skin exam: Present: warm, dry, intact, normal color. Absent: rash Course Vital Signs 03/24/22 06:39 Temperature 98.6 F Pulse Rate 52 L Respiratory 16 Rate Blood Pressure 123/91 O2 Sat by Pulse 99 Oximetry Medical Decision Making - Medical Decision Making Workup was negative at this time. Patient is advised on, asymptomatic this is recurrent seizures with no new injury. INR is 1.7 as is on Coumadin for atrial fibrillation. Patient has not missed any doses of his seizure medication.Patient has appt with neurologist tomorrow morning - Lab Data Result diagrams: 03/24/22 06:49 03/24/22 06:49 Lab Results 03/24/22 03/24/22 03/24/22 Range/Units 06:49 06:49 06:49 WBC 7.9 (3.8-10.6) k/uL RBC 4.60 (4.30-5.90) m/uL Hgb 14.6 (13.0-17.5) gm/dL Hct 42.6 (39.0-53.0) % MCV 92.5 (80.0-100.0) fL MCH 31.6 (25.0-35.0) pg MCHC 34.2 (31.0-37.0) g/dL RDW 13.4 (11.5-15.5) % Plt Count 151 (150-450) k/uL MPV 8.4 Neutrophils % 48 % Lymphocytes % 37 % Monocytes % 9 % Eosinophils % 4 % Basophils % 0 % Neutrophils # 3.8 (1.3-7.7) k/uL Lymphocytes # 2.9 (1.0-4.8) k/uL Monocytes # 0.7 (0-1.0) k/uL Eosinophils # 0.3 (0-0.7) k/uL Basophils # 0.0 (0-0.2) k/uL PT 17.5 H (9.0-12.0) sec INR 1.7 H (<1.2) APTT 31.7 H (22.0-30.0) sec Sodium 135 L (137-145) mmol/L Potassium 4.7 (3.5-5.1) mmol/L Chloride 102 (98-107) mmol/L Carbon Dioxide 26 (22-30) mmol/L Anion Gap 7 mmol/L BUN 13 (9-20) mg/dL Creatinine 0.74 (0.66-1.25) mg/dL Est GFR (CKD-EPI)AfAm >90 (>60 ml/min/1.73 sqM) Est GFR (CKD-EPI)NonAf 87 (>60 ml/min/1.73 sqM) Glucose 86 (74-99) mg/dL Calcium 8.4 (8.4-10.2) mg/dL Magnesium 1.6 (1.6-2.3) mg/dL Total Bilirubin 1.4 H (0.2-1.3) mg/dL AST 51 (17-59) U/L ALT 14 (4-49) U/L Alkaline Phosphatase 45 (38-126) U/L Total Protein 7.1 (6.3-8.2) g/dL Albumin 4.1 (3.5-5.0) g/dL Disposition Clinical Impression: Seizure Disposition: HOME SELF-CARE Condition: Stable Instructions (If sedation given, give patient instructions): Recurrent Seizures in Adults (ED) Additional Instructions: Please return to the Emergency Department if symptoms worsen or any other concerns. Is patient prescribed a controlled substance at d/c from ED?: No Referrals: Joe Franklin MD [Primary Care Provider] - 1-2 days Time of Disposition: 08:03
[2022-03-24 08:37] VITALS: BP 129/67; PULSE 50; RESP 17
== END 2022-03-24 08:37 | disposition home or self-care (01) ==
LOC: EC 06:33
DX: G40.909 Epilepsy, unspecified, not intractable, without status epilepticus (principal); I10 Essential (primary) hypertension; J44.9 Chronic obstructive pulmonary disease, unspecified; E78.5 Hyperlipidemia, unspecified; Z79.01 Long term (current) use of anticoagulants; Z79.899 Other long term (current) drug therapy; Z99.89 Dependence on other enabling machines and devices
CPT/HCPCS: 36415; 80053; 83735; 85025; 85610; 85730; 93005; 99284

== ENCOUNTER → 2022-03-31 | Outpatient (CLI) | payer MEDICARE, OTHER ==
--- NOTE | 2022-03-31 12:41 | CT ---
EXAMINATION TYPE: CT brain wo con DATE OF EXAM: 03/31/2022 COMPARISON: 08/15/2019 HISTORY: seizure CT DLP: 1336.4 mGycm Automated exposure control for dose reduction was used. FINDINGS: There is no acute intracranial hemorrhage or midline shift identified. There is diffuse ventricular a nd sulcal prominence consistent with diffuse age-related cerebral atrophy. There is low-attenuation in the periventricular white matter consistent with chronic small vessel ischemic change. There is intracranial atherosclerotic changes. Craniocervical junction maintained. Partially empty se lla turcica. The globes are intact and the visualized sinuses are clear. Severe changes of right mast oiditis and mild left mastoiditis. IMPRESSION: 1. DEGENERATIVE AND NONSPECIFIC WHITE MATTER CHANGE MOST TYPICAL OF REMOTE ISCHEMIA. 2. THERE IS SEVERE RIGHT-SIDED MASTOIDITIS AND MILD LEFT MASTOIDITIS.
== END | disposition home or self-care (01) ==
LOC: RADCTMAIN 12:11
PROVIDERS: ATTEND Psychiatry & Neurology Neurology
DX: G40.209 Localization-related (focal) (partial) symptomatic epilepsy and epileptic syndromes with complex partial seizures, not intractable, without status epilepticus (principal); R90.82 White matter disease, unspecified; H70.92 Unspecified mastoiditis, left ear; H70.91 Unspecified mastoiditis, right ear
CPT/HCPCS: 70450

== ENCOUNTER 2022-04-13 18:49 | Emergency (ER) | payer MEDICARE, OTHER ==
[2022-04-13 19:00] VITALS: RESP 18; TEMP 97.2
[2022-04-13] MEDS ORDERED: levETIRAcetam IV 1,000 MG in SALINE 1 100ML.BAG IVPB STA (19:09)
--- NOTE | 2022-04-13 19:13 | ED ---
General Adult HPI - General Chief complaint: Altered Mental Status Stated complaint: altered Time Seen by Provider: 04/13/22 18:59 Source: patient, family, EMS, RN notes reviewed Mode of arrival: EMS Limitations: no limitations - History of Present Illness Initial comments: Patient is a pleasant 81-year-old male presenting to the emergency Department wi th seizure. Patient does have history of seizures and normally has 2-3 per year. Patient has had 6 seizures in the last 3 weeks. Patient has had 2 today. Patient was here a week ago and did have negative head CT done. Each seizure today lasted a couple of minutes, approximately 2-3. Patient states he is slightly drowsy at this time however has complaints otherwise. Patient is only on Depakote for seizure control. Majority of history is taken from . - Related Data Home Medications Medication Instructions Recorded Confirmed Potassium Chloride ER [K-Dur 20] 40 meq PO DAILY 04/11/17 07/15/18 amLODIPine BESYLATE [Norvasc] 10 mg PO DAILY 04/11/17 07/15/18 hydroCHLOROthiazide 25 mg PO DAILY 04/11/17 07/15/18 Acetaminophen Tab [Tylenol] 325 mg PO Q8HR 07/15/18 07/15/18 Pravastatin Sodium [Pravachol] 40 mg PO HS 07/15/18 07/15/18 Warfarin [Coumadin] 1 mg PO MO 07/15/18 07/15/18 Warfarin [Coumadin] 1.5 mg PO SUTUWETHFRSA 07/15/18 07/15/18 Previous Rx's Medication Instructions Recorded atenoloL [Tenormin] 25 mg PO BID #60 tab 07/23/17 Divalproex [Depakote] 500 mg PO BID #60 tablet. 08/12/17 Cephalexin [Keflex] 500 mg PO Q6HR 7 Days #28 cap 08/26/21 Cyclobenzaprine [Flexeril] 5 mg PO BID #10 tablet 08/26/21 Allergies Allergy/AdvReac Type Severity Reaction Status Date / Time No Known Allergies Allergy Verified 10/27/21 00:35 Review of Systems ROS Statement: Those systems with pertinent positive or pertinent negative responses have been documented in the HPI. ROS Other: All systems not noted in ROS Statement are negative. Constitutional: Denies: fever Eyes: Denies: eye pain ENT: Denies: ear pain Respiratory: Denies: cough Cardiovascular: Denies: chest pain Endocrine: Denies: fatigue Gastrointestinal: Denies: abdominal pain Genitourinary: Denies: dysuria Musculoskeletal: Denies: back pain Skin: Denies: rash Neurological: Reports: as per HPI. Denies: weakness Past Medical History Past Medical History: Atrial Fibrillation, COPD, Hyperlipidemia, Hypertension, Seizure Disorder, Sleep Apnea/CPAP/BIPAP Additional Past Medical History / Comment(s): dehydration, atrial fibrillation, History of Any Multi-Drug Resistant Organisms: None Reported Past Surgical History: Heart Catheterization, Hernia Repair Additional Past Surgical History / Comment(s): cataracts Past Anesthesia/Blood Transfusion Reactions: No Reported Reaction Past Psychological History: No Psychological Hx Reported Smoking Status: Never smoker Past Alcohol Use History: None Reported Past Drug Use History: None Reported - Past Family History Father Additional Family Medical History / Comment(s): smoker, and had heart attack Mother Family Medical History: No Reported History General Exam Limitations: no limitations General appearance: alert, in no apparent distress Head exam: Present: normocephalic Eye exam: Present: normal appearance Neck exam: Present: normal inspection Respiratory exam: Present: normal lung sounds bilaterally Cardiovascular Exam: Present: irregular rhythm GI/Abdominal exam: Present: soft. Absent: tenderness Extremities exam: Present: normal inspection. Absent: pedal edema, calf tenderness Neurological exam: Present: alert, oriented X3, CN II-XII intact. Absent: motor sensory deficit Expanded Neurological exam: Present: protecting the airway Patient oriented to: Present: person, place, time Speech: Present: fluid speech Cranial nerves: EOM's Intact: Normal Motor strength exam: RUE: 5, LUE: 5, RLE: 5, LLE: 5 Eye Response: (4) open spontaneously Motor Response: (6) obeys commands Verbal Response: (5) oriented Psychiatric exam: Present: normal affect, normal mood Skin exam: Present: normal color Course Vital Signs 04/13/22 18:56 Temperature 97.2 F L Pulse Rate 62 Respiratory 18 Rate Blood Pressure 137/66 O2 Sat by Pulse 98 Oximetry EKG Findings - EKG Comments: EKG Findings:: A. fib rate 65. QRS 104. QT 418. QTC 4:30. Left axis. Inferior Q waves. No acute ST change. EKG interpreted by myself. - EKG Results: EKG: interpreted by JESSICA Medical Decision Making - Medical Decision Making Patient reevaluated and resting comfortably in bed. Patient and family updated on results. Discussion had with patient and family regarding admission. They do refuse as it would both like to go home. They are agreeable to close follow- up with Dr. Saleem, the neurologist. They also have an appointment with primary care physician this week still and will keep that. - Lab Data Result diagrams: 04/13/22 19:15 04/13/22 19:15 Lab Results 04/13/22 04/13/22 Range/Units 19:15 19:15 WBC 7.8 (3.8-10.6) k/uL RBC 4.71 (4.30-5.90) m/uL Hgb 14.9 (13.0-17.5) gm/dL Hct 42.9 (39.0-53.0) % MCV 91.1 (80.0-100.0) fL MCH 31.7 (25.0-35.0) pg MCHC 34.8 (31.0-37.0) g/dL RDW 13.8 (11.5-15.5) % Plt Count 157 (150-450) k/uL MPV 7.8 Neutrophils % 62 % Lymphocytes % 23 % Monocytes % 9 % Eosinophils % 2 % Basophils % 1 % Neutrophils # 4.9 (1.3-7.7) k/uL Lymphocytes # 1.8 (1.0-4.8) k/uL Monocytes # 0.7 (0-1.0) k/uL Eosinophils # 0.2 (0-0.7) k/uL Basophils # 0.1 (0-0.2) k/uL Sodium 128 L (137-145) mmol/L Potassium 3.8 (3.5-5.1) mmol/L Chloride 96 L (98-107) mmol/L Carbon Dioxide 25 (22-30) mmol/L Anion Gap 7 mmol/L BUN 13 (9-20) mg/dL Creatinine 0.74 (0.66-1.25) mg/dL Est GFR (CKD-EPI)AfAm >90 (>60 ml/min/1.73 sqM) Est GFR (CKD-EPI)NonAf 87 (>60 ml/min/1.73 sqM) Glucose 132 H (74-99) mg/dL Calcium 8.8 (8.4-10.2) mg/dL Magnesium 1.7 (1.6-2.3) mg/dL Total Bilirubin 0.8 (0.2-1.3) mg/dL AST 25 (17-59) U/L ALT 12 (4-49) U/L Alkaline Phosphatase 48 (38-126) U/L Total Protein 6.8 (6.3-8.2) g/dL Albumin 4.1 (3.5-5.0) g/dL Valproic Acid 75.9 ug/mL Disposition Clinical Impression: Seizure Disposition: HOME SELF-CARE Condition: Stable Instructions (If sedation given, give patient instructions): Recurrent Seizures in Adults (ED) Additional Instructions: Please do follow-up with primary care physician this week as planned. Please also follow-up with your neurologist this week. Return for recurrent seizures, change in mental status, fever, weakness, worsening symptoms or other concerns. Is patient prescribed a controlled substance at d/c from ED?: No Referrals: Joe Franklin MD [Primary Care Provider] - 1-2 days Andrew Couch MD [REFERRING] - 1-2 days Time of Disposition: 20:19
[2022-04-13 19:32] LABS: Basophils # (A) 0.1 k/uL (0-0.2); Basophils % (A) 1 %; Eosinophils # (A) 0.2 k/uL (0-0.7); Eosinophils % (A) 2 %; HCT 42.9 % (39.0-53.0); HGB 14.9 gm/dL (13.0-17.5); Lymphocytes # (A) 1.8 k/uL (1.0-4.8); Lymphocytes % (A) 23 %; MCH 31.7 pg (25.0-35.0); MCHC 34.8 g/dL (31.0-37.0); MCV 91.1 fL (80.0-100.0); Mean Platelet Volume 7.8; Monocytes # (A) 0.7 k/uL (0-1.0); Monocytes % (A) 9 %; Neutrophils # (A) 4.9 k/uL (1.3-7.7); Neutrophils % (A) 62 %; Platelet Count 157 k/uL (150-450); RBC 4.71 m/uL (4.30-5.90); RDW 13.8 % (11.5-15.5); WBC 7.8 k/uL (3.8-10.6)
[2022-04-13 19:39] LABS: ALT 12 U/L (4-49); AST 25 U/L (17-59); African American GFR (CKD) >90 (>60 ml/min/1.73 sqM); Albumin 4.1 g/dL (3.5-5.0); Alkaline Phosphatase 48 U/L (38-126); Anion Gap 7 mmol/L; Blood Urea Nitrogen 13 mg/dL (9-20); Calcium 8.8 mg/dL (8.4-10.2); Carbon Dioxide 25 mmol/L (22-30); Chloride 96 mmol/L (98-107); Glucose 132 mg/dL (74-99); Magnesium 1.7 mg/dL (1.6-2.3); Non-African American GFR(CKD) 87 (>60 ml/min/1.73 sqM); Potassium 3.8 mmol/L (3.5-5.1); Sodium 128 mmol/L (137-145); Total Bilirubin 0.8 mg/dL (0.2-1.3); Total Protein 6.8 g/dL (6.3-8.2)
[2022-04-13 19:44] LABS: Valproic Acid (Depakene) 75.9 ug/mL
[2022-04-13] MEDS ORDERED: SODIUM CHLORIDE 0.9% 500 ML 500 ML IV STA (20:14)
[2022-04-13 21:02] VITALS: BP 132/75; PULSE 67
== END 2022-04-13 21:12 | disposition home or self-care (01) ==
LOC: EC 18:49
DX: R56.9 Unspecified convulsions (principal); I48.91 Unspecified atrial fibrillation; J44.9 Chronic obstructive pulmonary disease, unspecified; E78.5 Hyperlipidemia, unspecified; I10 Essential (primary) hypertension; G47.30 Sleep apnea, unspecified; Z79.899 Other long term (current) drug therapy; Z79.01 Long term (current) use of anticoagulants
CPT/HCPCS: 36415; 80164; 80053; 83735; 85025; 99285; 96365; J1953; 93005

== ENCOUNTER 2022-08-08 07:31 | Emergency (ER) | payer MEDICARE, OTHER ==
[2022-08-08 07:39] VITALS: BP 116/82; PULSE 62; RESP 18; TEMP 98.1
--- NOTE | 2022-08-08 08:08 | ED ---
Fall HPI - General Chief Complaint: Fall Stated Complaint: Fall on thinners Time Seen by Provider: 08/08/22 07:41 Source: patient, family (), EMS, RN notes reviewed, old records reviewed Mode of arrival: EMS - History of Present Illness Initial Comments: This is a pleasant 82-year-old male that presents to the emergency room with his after falling in the living room today backward hitting his head on the table. Did not loose consciousness. states that she heard him fall and was able to help him up to his chair. Patient states that he believes he tripped. He does take Coumadin daily. Denies any pain or discomfort at this time. Patient has a history of dementia, atrial fibrillation, COPD, hypertension, seizure disorder. 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 Place Fall Occurred: home Loss of Consciousness: none Prolonged Down Time?: no Symptoms Prior to Fall: none Location: head Severity scale (1-10): 0 Context: tripped/slipped Associated Symptoms: denies - Related Data Home Medications Medication Instructions Recorded Confirmed Potassium Chloride ER [K-Dur 20] 40 meq PO DAILY 04/11/17 07/15/18 amLODIPine BESYLATE [Norvasc] 10 mg PO DAILY 04/11/17 07/15/18 hydroCHLOROthiazide 25 mg PO DAILY 04/11/17 07/15/18 Acetaminophen Tab [Tylenol] 325 mg PO Q8HR 07/15/18 07/15/18 Pravastatin Sodium [Pravachol] 40 mg PO HS 07/15/18 07/15/18 Warfarin [Coumadin] 1 mg PO MO 07/15/18 07/15/18 Warfarin [Coumadin] 1.5 mg PO SUTUWETHFRSA 07/15/18 07/15/18 Previous Rx's Medication Instructions Recorded atenoloL [Tenormin] 25 mg PO BID #60 tab 07/23/17 Divalproex [Depakote] 500 mg PO BID #60 tablet. 08/12/17 Cephalexin [Keflex] 500 mg PO Q6HR 7 Days #28 cap 08/26/21 Cyclobenzaprine [Flexeril] 5 mg PO BID #10 tablet 08/26/21 Allergies Allergy/AdvReac Type Severity Reaction Status Date / Time No Known Allergies Allergy Verified 10/27/21 00:35 Review of Systems ROS Statement: Those systems with pertinent positive or pertinent negative responses have been documented in the HPI. ROS Other: All systems not noted in ROS Statement are negative. Past Medical History Past Medical History: Atrial Fibrillation, COPD, Dementia, Hyperlipidemia, Hypertension, Seizure Disorder, Sleep Apnea/CPAP/BIPAP Additional Past Medical History / Comment(s): dehydration, atrial fibrillation, History of Any Multi-Drug Resistant Organisms: None Reported Past Surgical History: Heart Catheterization, Hernia Repair Additional Past Surgical History / Comment(s): cataracts Past Anesthesia/Blood Transfusion Reactions: No Reported Reaction Past Psychological History: No Psychological Hx Reported Smoking Status: Never smoker Past Alcohol Use History: None Reported Past Drug Use History: None Reported - Past Family History Father Additional Family Medical History / Comment(s): smoker, and had heart attack Mother Family Medical History: No Reported History General Exam Limitations: no limitations General appearance: alert, in no apparent distress Head exam: Present: atraumatic, normocephalic, normal inspection Eye exam: Present: EOMI. Absent: scleral icterus, conjunctival injection, nystagmus, periorbital swelling, periorbital tenderness Neck exam: Present: full ROM. Absent: tenderness, meningismus, lymphadenopathy, thyromegaly Respiratory exam: Absent: respiratory distress, accessory muscle use Cardiovascular Exam: Present: regular rate GI/Abdominal exam: Present: soft. Absent: distended, tenderness, guarding, rebound, rigid Extremities exam: Present: normal capillary refill Back exam: Present: full ROM. Absent: tenderness, CVA tenderness (R), CVA tende rness (L), muscle spasm, paraspinal tenderness, vertebral tenderness, rash noted Neurological exam: Present: alert, oriented X3, CN II-XII intact Expanded Patient oriented to: Present: person, place, time Speech: Present: fluid speech Cranial nerves: EOM's Intact: Normal Eye Response: (4) open spontaneously Motor Response: (6) obeys commands Verbal Response: (5) oriented Central Total: 15 Psychiatric exam: Present: normal affect, normal mood Skin exam: Present: warm, dry, normal color. Absent: cyanosis, diaphoretic, petechiae, pallor Course Vital Signs 08/08/22 07:33 Temperature 98.1 F Pulse Rate 62 Respiratory 18 Rate Blood Pressure 116/82 O2 Sat by Pulse 96 Oximetry Medical Decision Making - Medical Decision Making at bedside states patient did not lose consciousness. States he did drink cup of coffee and take his medications prior to EMS arrival to bring him to the emergency room for evaluation status post fall on Coumadin. Patient has no complaints. Vital signs are stable. NIH 1; unsure of month, states year 2021. Patient has no focal neurological deficits. Speech is clear. No evidence of trauma. No neck pain. CT brain interpreted by me shows no evidence of intracranial hemorrhage, mass or midline shift. Radiologist impression of CT brain, atrophy with chronic appearing ventricular white matter ischemic type changes. No acute intracranial hemorrhage. CT cervical spine interpreted by radiologist shows degenerative disc changes of the cervical spine. No acute osseous abnormality. Patient will be discharged home to follow up with primary care doctor. states they have an appointment on Wednesday with Dr Franklin. Directed to return with any new or concerning symptoms. They are agreeable to this plan of care. Case discussed with Dr. Hagen. Was pt. sent in by a medical professional or institution (, PA, TRANSLATION DIRECTOR, urgent care, hospital, or fdc...) When possible be specific @ -No Did you speak to anyone other than the patient for history (EMS, parent, family, police, friend...)? What history was obtained from this source @ - Did you review nursing and triage notes (agree or disagree)? Why? @ -I reviewed and agree with nursing and triage notes Were old charts reviewed (outside hosp., previous admission, EMS record, old EK G, old radiological studies, urgent care reports/EKG's, fdc records)? Report findings @ -No old charts were reviewed Differential Diagnosis (chest pain, altered mental status, abdominal pain women, abdominal pain men, vaginal bleeding, weakness, fever, dyspnea, syncope, headache, dizziness, GI bleed, back pain, seizure, CVA, palpatations, mental health, musculoskeletal)? @ -Skull fracture, intracranial hemorrhage, seizure, syncope, this is not an inclusive list EKG interpreted by me (3pts min.). @ -n/a X-rays interpreted by me (1pt min.). @ -None done CT interpreted by me (1pt min.). @ -Yes as above U/S interpreted by me (1pt. min.). @ -None done What testing was considered but not performed or refused? (CT, X-rays, U/S, labs)? Why? @ -None What meds were considered but not given or refused? Why? @ -None Did you discuss the management of the patient with other professionals (professionals i.e. , PA, TRANSLATION DIRECTOR, lab, RT, psych nurse, social work associate, dust brush assembler, teacher, consular officer, family independence case manager)? Give summary @ -No Was smoking cessation discussed for >3mins.? @ -No Was critical care preformed (if so, how long)? @ -No Were there social determinants of health that impacted care today? How? (Homelessness, low income, unemployed, alcoholism, drug addiction, transportation, low edu. Level, literacy, decrease access to med. care, fci, rehab)? @ -No Was there de-escalation of care discussed even if they declined (Discuss DNR or withdrawal of care, Hospice)? DNR status @ -No What co-morbidities impacted this encounter? (DM, HTN, Smoking, COPD, CAD, Cancer, CVA, ARF, Chemo, Hep., AIDS, mental health diagnosis, sleep apnea, morbid obesity)? @ -Hypertension, dementia, atrial fibrillation, COPD, seizure Was patient admitted / discharged? Hospital course, mention meds given and route, prescriptions, significant lab abnormalities, going to OR and other pertinent info. @ -Discharged Undiagnosed new problem with uncertain prognosis? @ -No Drug Therapy requiring intensive monitoring for toxicity (Heparin, Nitro, Insulin, Cardizem)? @ -No Were any procedures done? @ -No Diagnosis/symptom? @ -Fall on Coumadin, head injury Acute, or Chronic, or Acute on Chronic? @ -Acute Uncomplicated (without systemic symptoms) or Complicated (systemic symptoms)? @ -Uncomplicated Side effects of treatment? @ -No Exacerbation, Progression, or Severe Exacerbation? @ -No Poses a threat to life or bodily function? How? (Chest pain, USA, NH, pneumonia, PE, COPD, DKA, ARF, appy, cholecystitis, CVA, Diverticulitis, Homicidal, Suicidal, threat to staff... and all critical care pts) @ -No Disposition Clinical Impression: Fall Disposition: HOME SELF-CARE Condition: Good Instructions (If sedation given, give patient instructions): Fall Prevention for Older Adults (ED) Additional Instructions: Follow-up with your primary care doctor on Wednesday. Return to the emergency room with any new or concerning symptoms. Is patient prescribed a controlled substance at d/c from ED?: No Referrals: Joe Franklin MD [Primary Care Provider] - 1-2 days Time of Disposition: 08:19
--- NOTE | 2022-08-08 08:14 | CT ---
EXAMINATION TYPE: CT brain hebertine wo con DATE OF EXAM: 08/08/2022 COMPARISON: 03/31/2022 HISTORY: Fall and on thinners CT DLP: 1313.5 mGycm, Automated exposure control for dose reduction was used. CONTRAST: Patient injected with 0 mL of Isovue 300. CT of the brain is performed utilizing 3 mm thick sections through the posterior fossa and 3 mm thick sections through the remaining calvarium. Study is performed within 24 hours of arrival to the hospital. No abnormal hyperdensity is present to suggest an acute intracranial hemorrhage. No mass lesion is evident. No acute infarcts are evident. Periventricular white matter hypodensity is present, likely on the ba sis of chronic white matter ischemic changes. Findings are similar to comparison. Ventricles and sulci are prominent for the patient age. Paranasal sinuses are clear. There is opacification of right mastoid air cells. Correlate for mastoid itis. Left mastoid air cells and normal aeration. IMPRESSIONS: 1. Atrophy with chronic appearing periventricular white matter ischemic type changes. 2. No acute intracranial hemorrhage. 3. Correlate for right mastoiditis. CT cervical spine. COMPARISON: None CT of the cervical spine is performed in the axial plane at 2 mm thick sections. Reconstructed image s in the coronal, and sagittal plane are reviewed on the computer. No acute fractures are evident. Vertebral body alignment is normal. There is loss of disc height through the cervical spine greatest at C5-6. Anterior vertebral body spu rring is present greatest at C5-C6. No spinal canal stenosis is evident. Vertebral body heights are preserved. Uncovertebral joint hypertrophy is contributing to moderate right foraminal stenosis C3-4. Uncoverteb ral joint hypertrophy is narrowing C4-5 foramen. Mild bilateral C5-6 foraminal narrowing is present. IMPRESSIONS: 1. Degenerative disc changes cervical spine. 2. No acute osseous abnormality.
== END 2022-08-08 08:35 | disposition home or self-care (01) ==
LOC: EC 07:31
DX: S09.90XA Unspecified injury of head, initial encounter (principal); I10 Essential (primary) hypertension; E78.5 Hyperlipidemia, unspecified; J44.9 Chronic obstructive pulmonary disease, unspecified; I48.91 Unspecified atrial fibrillation; F03.90 Unspecified dementia, unspecified severity, without behavioral disturbance, psychotic disturbance, mood disturbance, and anxiety; Z79.01 Long term (current) use of anticoagulants; Z79.899 Other long term (current) drug therapy; W01.0XXA Fall on same level from slipping, tripping and stumbling without subsequent striking against object, initial encounter; Y92.009 Unspecified place in unspecified non-institutional (private) residence as the place of occurrence of the external cause
CPT/HCPCS: 70450; 72125; 99284